=== PATIENT | female | born 1980 | race Caucasian/White ===

== ENCOUNTER 2017-11-25 15:39 | Emergency (ER) | payer OTHER, SELFPAY ==
[2017-11-25 15:44] VITALS: BP 119/90; PULSE 100; RESP 18; TEMP 37; O2SAT 99; BMI 18.1
--- NOTE | 2017-11-25 15:54 | CT_ITS ---
CT abdomen pelvis wo con CLINICAL INDICATION: Right-sided abdominal pain ITS.REASON: ABD PAIN ORDERING PHYSICIAN: Mallory Romeo MD PATIENT AGE: 37 years COMPARISON: None TECHNIQUE: Axial images obtained with sagittal and coronal reformats. PROCEDURE: Oral Contrast: None IV Contrast: None . FINDINGS: The lung bases are clear. There is subtle area of decreased attenuation involving the inferior medial aspect of the right hepatic lobe adjacent to the gallbladder fossa. This may limit related to partial volume averaging artifact however, a subtle space-occupying lesion cannot be excluded. Follow-up with contrast suggested on outpatient basis. The liver is otherwise unremarkable. Gallbladder is contracted without radio opaque stones. The spleen, adrenal glands, and pancreas are unremarkable. Faint calcific density in the right upper quadrant in the region of the duodenal bulb. Punctate 2 mm stone is present in the lower pole the right kidney. No hydronephrosis. Or obstructing ureteral calculi. Unremarkable appendix. No intestinal obstruction or free air. No focal inflammatory change. Prior hysterectomy. Small amount fluid is present in the cul-de-sac on the right IMPRESSION 1. No definite acute finding. 2. Possible small space-occupying lesion of the liver at 1.8 cm versus artifact. Outpatient three-phase CT scan suggested with contrast. 3. Contracted gallbladder. 4. nonobstructing punctate right renal calculus 5. No evidence of appendicitis or stranding ureteral calculus
[2017-11-25 16:27] LABS: Basophils % 0.6 % (0.1-2.0); Eosinophils # 0.1 K/mm3 (0.0-0.4); Hematocrit 40.7 % (37.0-47.0); Hemoglobin 13.3 g/dL (12.2-16.2); Lymphocytes # 2.4 K/mm3 (0.7-4.5); Mean Corpuscular HGB Conc 32.7 g/dL (31.8-35.4); Mean Corpuscular Hemoglobin 30.2 pg (27.0-31.2); Mean Corpuscular Volume 92.6 fl (81-99); Mean Platelet Volume 8.5 fl (7.4-10.4); Monocytes # 0.2 K/mm3 (0.1-1.0); Monocytes % 3.6 % (1.7-9.3); Neutrophils # 3.3 K/mm3 (1.8-7.8); Neutrophils % 54.9 % (37.0-80.0); Platelet Count 151 K/mm3 (142-424); Red Blood Count 4.39 M/mm3 (4.20-5.40); Red Cell Distribution Width 13.4 % (11.5-17.5)
[2017-11-25 16:36] LABS: Alanine Aminotransferase 19 U/L (12-78); Albumin Level 3.9 gm/dL (3.4-5.0); Albumin/Globulin Ratio 1.2 (1.1-1.8); Alkaline Phosphatase 72 U/L (46-116); Amylase 44 U/L (25-125); Anion Gap 9.9 mEq/L (5-15); Aspartate Amino Transferase 13 U/L (15-37); Bilirubin,Total 0.3 mg/dL (0.2-1.0); Blood Urea Nitrogen 9 mg/dL (7-18); Calcium 8.5 mg/dL (8.5-10.1); Carbon Dioxide 28 mmol/L (21.0-32.0); Chloride 103 mmol/L (98-107); Creatinine Clearance Estimated 81 mL/min (0-300); Creatinine,Serum 0.69 mg/dL (0.55-1.02); Estimated Glomerular Filt Rate > 60 ml/min (>60); GFR (African American) > 60 ML/MIN (>60); Globulin 3.3 gm/dl (1.3-3.2); Glucose 83 mg/dL (74-106); Lipase 157 u/L (73-393); Potassium 3.9 mmoL/L (3.5-5.1); Sodium 137 mmol/L (136-145); Total Protein,Serum 7.2 gm/dL (6.4-8.2)
--- NOTE | 2017-11-25 17:39 | HMH.EDABDPAI ---
ED Disposition Clinical Impression: Abdominal pain Qualifiers: Abdominal location: right lower quadrant Qualified Code(s): R10.31 - Right lower quadrant pain Disposition: Home, Self-Care Condition on Discharge: Good Instructions: DI for Acute Abdomen, Acute Abdominal Pain Additional Instructions: Clear liquids overnight, see Araceli Crawford next week for recheck, two to three days. Time of Disposition: 20:04 - Critical Care Critical Care Time: No Attestation: On 11/25/17, the high probability of a clinically significant, sudden or life threatening deterioration of the following system(s) required my full and direct attention, intervention and personal management. The time I documented below is in addition to time spent performing reported procedures but includes the following listed in this critical care notation. Medical Decision Making Vital Signs: 11/25/17 15:44 Temperature 98.6 F Temperature Source Oral Pulse Rate [Right Brachial] 100 H Respiratory Rate 18 Blood Pressure [Right Arm] 119/90 Blood Pressure Mean [Right Arm] 99 Blood Pressure Source [Right Arm] Automatic Cuff Blood Pressure Position [Right Arm] Sitting 02 Sat by Pulse Oximetry 99 Oxygen Delivery Method Room Air - Lab Data Lab results reviewed: Yes: I reviewed the patient's lab results. Lab Results 11/25/17 15:51: Urine Color Yellow, Urine Appearance Sl cloudy, Urine pH 6.5, Ur Specific [place] 1.020, Urine Protein Negative, Urine Glucose (UA) Negative, Urine Ketones Negative, Urine Blood Negative, Urine Nitrate Negative, Urine Bilirubin Negative, Urine Urobilinogen 0.2, Ur Leukocyte Esterase Negative, Urine WBC Occasional, Ur Squamous Epith Cells 10-20, Urine Bacteria Trace 11/25/17 16:18: WBC 6.0, RBC 4.39, Hgb 13.3, Hct 40.7, MCV 92.6, MCH 30.2, MCHC 32.7, RDW 13.4, Plt Count 151, MPV 8.5, Neut % (Auto) 54.9, Lymph % (Auto) 40.0, Rosebud % (Auto) 3.6, Eos % (Auto) 1.0, Baso % (Auto) 0.6, Neut # (Auto) 3.3, Lymph # (Auto) 2.4, Rosebud # (Auto) 0.2, Eos # (Auto) 0.1, Baso # (Auto) 0.0 11/25/17 16:18: Sodium 137, Potassium 3.9, Chloride 103, Carbon Dioxide 28, Anion Gap 9.9, BUN 9, Creatinine 0.69, Estimated Creat Clear 81, Estimated GFR > 60, Est GFR ( Amer) > 60, Glucose 83, Calcium 8.5, Total Bilirubin 0.3, AST 13 L, ALT 19, Alkaline Phosphatase 72, Total Protein 7.2, Albumin 3.9, Globulin 3.3 H, Albumin/Globulin Ratio 1.2, Amylase 44, Lipase 157 Result diagrams: 11/25/17 16:18 11/25/17 16:18 Orders (Tests/Meds): ED MEDICATIONS Generic Name Dose Route Start Last Admin Trade Name Freq PRN Reason Stop Dose Admin Sodium Chloride 10 ml 11/25/17 16:23 Saline Flush 10ml Syringe IV 12/25/17 16:22 NEEDED PRN Maintain IV Site - CT Data CT Scan: Abdomen, Pelvis Time Received: 17:[address] Reviewed: Yes: I have viewed the radiologist's interpretation Preliminary Findings: Normal/NAD - Solomon Inquiry Pt receiving controlled substance: No Medical Decision Making Narrative: Nonsurgical abdomen, will f/u Araceli Crawford, stable at d/c Abdominal Pain HPI - General Chief Complaint: Abdominal Pain Stated Complaint: Pain on Right Side Time Seen by Provider: 11/25/17 17:39 Mode of Arrival: Ambulatory Limitations: No Limitations Description of Symptoms (Recalled from ER Triage Doc. by RN): RIGHT SIDE ABD PAIN - History of Present Illness HPI narrative: Diminished appetite, RLQ abdominal pain x several days, referred by Araceli Crawford to r/o appendicitis after seen in Araceli's office today. No fever or vomiting today. No blood from above or below. Pain mild and nonradiating, no urinary sx, hx hysterectomy. MD complaint: abdominal pain - Related Data Allergies Allergy/AdvReac Type Severity Reaction Status Date / Time cephalexin [From Keflex] Allergy Mild TONGUE Unverified 11/08/17 15:14 FEEL THICK metronidazole [From Flagyl] Allergy Mild TREMORS Unverified 11/08/17 15:14 clonazepam [From KLONOPIN] All
[2017-11-25 17:55] LABS: Microscopic, Urine URINE MICROSCOPIC (MICROSCOPIC)
[2017-11-25 17:56] LABS: Appearance,Urine SL CLOUDY (Clear); Bilirubin,Urine Negative (Negative); Blood, Urine Negative (Negative); Color,Urine YELLOW (Yellow); Glucose,Urine (UA) Negative (Negative); Ketones,Urine Negative (Negative); Leukocyte Esterase,Urine Negative (Negative); Nitrate,Urine Negative (Negative); PH,Urine 6.5 (5.0-8.5); Protein,Urine Negative (Negative); Urobilinogen,Urine 0.2 EU/dl (0.2)
[2017-11-25 18:02] LABS: Bacteria,Urine Trace /lpf; WBC,Urine Occasional #/hpf (0-3)
[2017-11-25 20:37] VITALS: BP 100/69; PULSE 77; RESP 16; TEMP 37; O2SAT 99
== END 2017-11-25 20:41 | disposition home or self-care (01) ==
PROVIDERS: Emergency Provider Emergency Medicine; Family Provider Nurse Practitioner Family
DX: R10.31 Right lower quadrant pain (principal); F17.210 Nicotine dependence, cigarettes, uncomplicated
CPT/HCPCS: 74176; 80053; 81001; 82150; 83690; 85025; 99283

== ENCOUNTER → 2019-07-09 09:58 | Outpatient (POV) | payer OTHER, SELFPAY | PROVIDERS: PCP Nurse Practitioner Family; Visit Provider Nurse Practitioner Family | DX: Z00.00 Encounter for general adult medical examination without abnormal findings (principal) ==

== ENCOUNTER 2021-02-26 10:00 | Outpatient (RCR) | payer OTHER, SELFPAY | END 2021-03-16 14:00 | disposition home or self-care (01) | LOC: PT.CARL 10:00 | PROVIDERS: PCP Nurse Practitioner Family; Visit Provider Nurse Practitioner Family | DX: M54.2 Cervicalgia (principal) | CPT/HCPCS: 97110; 97140; 97163 ==

== ENCOUNTER → 2021-03-09 15:49 | Outpatient (CLI) | payer OTHER, SELFPAY ==
--- NOTE | 2021-03-09 15:52 | MR_ITS ---
PROCEDURE: MR CERVICAL SPINE WO CON CLINICAL INDICATION: CERVICAL DISC DISORDER Weakness in lt arm. When tilting head up, pain radiates down back. Lt arm numbness. Symptoms x2yrs. Headache. COMPARISON: No exams were available for comparison TECHNIQUE: Medially not necessary okay 3-D MIP and myelographic images are also rendered and reviewed FINDINGS: There is normal alignment. Craniocervical junction has an unremarkable appearance. C2-C3: Unremarkable. C3-C4: Unremarkable. C4-C5: Mild left-sided uncovertebral hypertrophy with mild left-sided foraminal narrowing. C5-C6: Mild degenerative disc disease. There is a small right paracentral and foraminal disc osteophyte complex causing right lateral recess and foraminal narrowing. There is mild flattening of the cord anteriorly on the right with canal stenosis of 9 mm. C6-C7: Unremarkable. C7-T1: Unremarkable. There are few scattered small cervical lymph nodes. There is a right thyroid nodule measuring 16 x 14 mm. This is heterogeneous increased T2 signal with some increase in T1 signal. IMPRESSION: 1. C4-C5: Mild left-sided uncovertebral hypertrophy with mild left-sided foraminal narrowing. 2. C5-C6: Mild degenerative disc disease. There is a small right paracentral and foraminal disc osteophyte complex causing right lateral recess and foraminal narrowing. There is mild flattening of the cord anteriorly on the right with canal stenosis of 9 mm. 3. Indeterminate right thyroid nodule. Ultrasound suggested for further evaluation. Dictated by: Gabe Hopper MD 03/11/2021 10:59 Gabe Hopper MD in [place] 03/11/2021 10:59
== END ==
PROVIDERS: PCP Nurse Practitioner Family; Visit Provider Nurse Practitioner Family
DX: M50.13 Cervical disc disorder with radiculopathy, cervicothoracic region (principal)
CPT/HCPCS: 72141; 76376

== ENCOUNTER → 2021-03-17 14:32 | Outpatient (CLI) | payer OTHER, SELFPAY ==
--- NOTE | 2021-03-17 14:34 | US_ITS ---
PROCEDURE: US THYROID CLINICAL INDICATION: NEOPLASM OF UNCERTAIN BEHAVIOR OF THYROID GLAND COMPARISON: MR MR CERVICAL SPINE WO CON from 03/09/2021 FINDINGS: The right lobe is 4.5 x 1.3 x 1.6 cm. In the upper pole there is a 2 mm area of hypoechogenicity nonspecific. In the mid polar region there is a spongiform appearing nodule at 5 x 4 mm TR 2 benign-appearing. In the lower pole on the right there is a 1.9 x 1 cm partially cystic nodule which may correspond to the abnormality noted on the recent MRI. This is well-circumscribed wider than tall without calcification. TR level 2. The left lobe is 3.9 x 0.9 x 1.3 cm. There is a 2 mm cystic area in the lower pole IMPRESSION: Partially cystic 1.9 cm nodule in the lower pole on the right TR level 2. Consider 6-12 month follow-up to confirm short term stability. Dictated by: Gabe Hopper MD 03/17/2021 16:59 Gabe Hopper MD in [place] 03/17/2021 16:59
== END ==
PROVIDERS: PCP Nurse Practitioner Family; Visit Provider Nurse Practitioner Family
DX: D44.0 Neoplasm of uncertain behavior of thyroid gland (principal)
CPT/HCPCS: 76536

== ENCOUNTER → 2021-11-19 13:44 | Outpatient (CLI) | payer OTHER, SELFPAY ==
--- NOTE | 2021-11-19 13:46 | US_ITS ---
PROCEDURE: US THYROID CLINICAL INDICATION: SINGLE THYROID NODULE COMPARISON: US US THYROID from 03/17/2021 FINDINGS: Right lobe: 4.5 x 1.3 x 2.1 cm. Multiple stable nodules. The largest nodule is in the lower pole posteriorly at 1.5 x 2 x 0.8 cm. This is a mixed cystic and solid nodule and does not appear significantly changed. Left lobe: 3.8 x 1 x 1.3 cm. Two small cysts are present at 2 mm each. Isthmus: Unremarkable Additional findings: IMPRESSION: Stable ultrasound appearance of the thyroid gland with no change in the dominant right-sided nodule TR level 2 less than 2.5 cm. Annual follow-up suggested. Dictated by: Gabe Hopper MD 11/19/2021 15:28 Gabe Hopper MD in [place] 11/19/2021 15:28
== END ==
PROVIDERS: PCP Nurse Practitioner Family; Visit Provider Nurse Practitioner Family
DX: E04.1 Nontoxic single thyroid nodule (principal)
CPT/HCPCS: 76536

== ENCOUNTER 2022-05-21 12:52 | Emergency (ER) | payer OTHER, SELFPAY ==
[2022-05-21 13:19] VITALS: BP 112/82; PULSE 79; RESP 16; TEMP 36.8; O2SAT 99; BMI 19.2
--- NOTE | 2022-05-21 13:23 | HMH.EDUTC ---
[facility] [place] Clinical Impression: Left leg cellulitis, Need for Tdap vaccination Leg wound, left Qualifiers: Encounter type: initial encounter Qualified Code(s): S81.802A - Unspecified open wound, left lower leg, initial encounter Disposition: Home, Self-Care Condition on Discharge: Good Instructions: Cellulitis, Tetanus, Diphtheria, Pertussis (Tdap) Vaccine Additional Instructions: Keep the affected area clean and dry. Follow up with your regular doctor. Watch the wound for signs of worsening infection, such as worsening swelling, redness or drainage. Take the antibiotics as directed and apply the topical antibiotics as directed. Apply warm wet compresses to the affected area three or four times per day. GO TO THE ER FOR ANY WORSENING SYMPTOMS Prescriptions: Amoxicillin [Amoxicillin 500mg Tab] 500 mg PO TID 10 Days #30 tab Transmission Status: Received by [facility] Sulfamethoxazole/Trimethoprim [Bactrim DS tablet] 1 each PO BID 10 Days #20 tab Transmission Status: Received by [facility] Mupirocin [Bactroban 2% Ointment 22gm tube] 1 applicatio TP TID 7 Days #1 gm Transmission Status: Received by [facility] Referrals: Lillie Ivory [Primary Care Provider] - Forms: Work/School Release Time of Disposition: 13:41 Medical Decision Making - Medical Records Medical records reviewed: No: I reviewed the patient's medical records. - Solomon Inquiry Pt receiving controlled substance: No Vital Signs: 05/21/22 13:19 05/21/22 14:02 Temperature 98.3 F 98.3 F Temperature Source Oral Pulse Rate 79 Pulse Rate [Left] 79 Respiratory Rate 16 16 Blood Pressure 112/82 Blood Pressure [Right Arm] 112/82 Blood Pressure Mean [Right Arm] 92 02 Sat by Pulse Oximetry 99 Orders (Tests/Meds): ED MEDICATIONS Discontinued Medications Generic Name Dose Route Start Last Admin Trade Name Freq PRN Reason Stop Dose Admin Tetanus/Reduced Diphtheria/Acell Pertussis 0.5 ml 05/21/22 13:33 05/21/22 13:48 Tet/Diphth/Pert-Adult 0.5ml Syringe IM 05/21/22 13:34 0.5 ml .ONCE ONE Administration [facility] [place] - General Stated complaint: AO 05/18 leg injury Time Seen by Provider: 05/21/22 13:24 Description of Symptoms (Recalled from Triage Doc. by RN): patient comes in to get leg checked out. patient was mowing and soething come up and hit her leg. the spot is now getting red and swollen. happened 2 days ago HEENT Symptoms (Recalled from RN notes): No Resp Symptoms (Recalled from RN notes): No Skin Symptoms (Recalled from RN notes): Yes MS Symptoms (Recalled from RN notes): No Functional Status (Recalled from RN notes): wnl - History of Present Illness Provider Complaint: 2 days ago she was mowing her grass when the accountant assistant hit a piece of pvc pipe and it came up and hit her on the left bergman. She recieved a small laceration. She thought it would be ok, so she did not seek treatment then. But, since then it has became swollen and there is an area of redness around it. Her tetanus immunization is not up to date. She denies any fever, chills, or feeling bad other than the pain at the site. She denies that there could be any foreign body in the wound. - Related Data Home Medications Medication Instructions Recorded Confirmed Cyanocobalamin (Vitamin B-12) 1,000 mcg PO DAILY 05/10/19 05/10/19 [Vitamin B-12] Ergocalciferol (Vitamin D2) 400 unit PO DAILY 05/10/19 05/10/19 [Vitamin D] Previous Rx's Medication Instructions Recorded Amoxicillin [Amoxicillin 500mg Tab] 500 mg PO TID 10 Days #30 tab 05/21/22 Mupirocin [Bactroban 2% Ointment 1 applicatio TP TID 7 Days #1 gm 05/21/22 22gm tube] Sulfamethoxazole/Trimethoprim 1 each PO BID 10 Days #20 tab 05/21/22 [Bactrim DS tablet] Allergies Allergy/AdvReac Type Severity Reaction Status Date / Time cephalexin [From Keflex] Allergy Mild TONGUE Verified 05/21/22 13:21 FEEL THICK metronid
[2022-05-21 14:02] VITALS: BP 112/82; PULSE 79; RESP 16; TEMP 36.8
== END 2022-05-21 14:02 | disposition home or self-care (01) ==
PROVIDERS: Emergency Provider Nurse Practitioner Family; PCP Nurse Practitioner Family
DX: L03.116 Cellulitis of left lower limb (principal); S81.812A Laceration without foreign body, left lower leg, initial encounter; W20.8XXA Other cause of strike by thrown, projected or falling object, initial encounter
CPT/HCPCS: 90471; 90715; 99212; G0463

== ENCOUNTER 2022-11-06 14:16 | Emergency (ER) | payer OTHER, SELFPAY ==
[2022-11-06 16:33] LABS: UTC Influenza A Antigen Negative (Negative)
[2022-11-06 16:34] LABS: UTC Influenza B Antigen Negative (Negative)
[2022-11-06 16:37] VITALS: BP 99/78; PULSE 110; RESP 16; TEMP 37.1; O2SAT 99; BMI 19.2
--- NOTE | 2022-11-06 17:12 | EXP.UTC ---
Discharge Plan Disposition Patient Disposition: Home, Self-Care Condition: Good Prescriptions Prescriptions: No Action ergocalciferol (vitamin D2) 400 UNIT tablet 400 unit PO DAILY cyanocobalamin (vitamin B-12) 1,000 MCG capsule 1,000 mcg PO DAILY sulfamethoxazole-trimethoprim 1 EACH tablet 1 each PO BID 10 Days Qty: 20 0RF amoxicillin 500 MG tablet 500 mg PO TID 10 Days Qty: 30 0RF mupirocin 22 GM ointment 1 applicatio TP TID 7 Days Qty: 1 0RF Referrals Follow up/Referrals: Lillie Ivory [Primary Care Provider] - See instructions Activity Restrictions/Add. Instructions Additional Instructions/Restrictions: may return to work once Covid results are known. Clinical Impressions Clinical Impression: Upper respiratory tract infection Stand Alone Forms Stand Alone Forms: Work/School Release Discharge ED Provider: Cherelle Castro [facility] General Stated complaint: Runny Nose, Bodyaches Mode of Arrival: Ambulatory Source of Information: Patient Limitations: No Limitations Time Seen by Provider: 11/06/22 17:12 Description of Symptoms (Recalled from Triage Doc. by RN): pt comes in with c/o body aches, headache, chills, symptoms began yesterday HEENT Symptoms (Recalled from RN notes): Yes Resp Symptoms (Recalled from RN notes): Yes Skin Symptoms (Recalled from RN notes): No MS Symptoms (Recalled from RN notes): No Functional Status (Recalled from RN notes): n/a History of Present Illness Provider Complaint: Pt relates that her son had flu last week. 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 She is concerned as she ran a fever at home and has had a sore throat, sinus drainage, headache, and body aches. She has not taken anything for her symptoms. Related Data Home Medications Medication Instructions Recorded Confirmed cyanocobalamin (vitamin B-12) 1,000 mcg PO DAILY Supplement 05/10/19 05/10/19 1,000 mcg capsule ergocalciferol (vitamin D2) 10 mcg 400 unit PO DAILY Supplement 05/10/19 05/10/19 (400 unit) tablet Previous Rx's Medication Instructions Recorded amoxicillin 500 mg tablet 500 mg PO TID 10 days #30 tabs 05/21/22 mupirocin 2 % topical ointment 1 applicatio topical TID 7 days ##1 05/21/22 sulfamethoxazole 800 1 each PO BID 10 days #20 tabs 05/21/22 mg-trimethoprim 160 mg tablet Allergies Allergy/AdvReac Type Severity Reaction Status Date / Time cephalexin [From Keflex] Allergy Mild TONGUE Verified 11/06/22 16:42 FEEL THICK metronidazole [From Flagyl] Allergy Mild TREMORS Verified 11/06/22 16:42 clonazepam [From KLONOPIN] Allergy Unknown UNK Verified 11/06/22 16:42 paroxetine [From PAXIL] Allergy Unknown eyes Verified 11/06/22 16:42 shaky Worker's Comp Is this a Worker's Comp case?: No [facility] Disclaimer: The information contained in this section may have been updated after the patient was seen, as this information can be updated by other users. Social History Smoking Status: Current every day smoker tobacco type: cigarettes packs per day: 15 second hand exposure: No alcohol intake: never current occupational status: other Travel in the last 8 weeks: None caffeine: No ROS Obtained: Yes All systems reviewed & no additional complaints except as documented Constitutional Constitutional: Reports body ache, Reports chills, Reports fatigue, Reports fever(s), Reports headache(s) and Reports malaise Eyes Eyes: Reports system reviewed and no additional complaints, except as documented ENT Ears, Nose, Mouth, and Throat: Reports headache(s), Reports nasal discharge and Reports sore throat Cardiovascular Cardiovascular: Reports system reviewed and no additional complaints, except as documented Respiratory Respiratory: Reports system reviewed and no additional complaints, except as documented Gastrointestinal Gastrointestingal: Reports system reviewed and
[2022-11-06 17:23] VITALS: BP 99/78; PULSE 90; RESP 16; TEMP 37.1
== END 2022-11-06 17:28 | disposition home or self-care (01) ==
PROVIDERS: Emergency Provider Nurse Practitioner Family; PCP Nurse Practitioner Family
DX: U07.1 COVID-19 (principal)
CPT/HCPCS: 87804; 99212; C9803; G0463; U0003; U0005

== ENCOUNTER 2024-03-08 10:42 | Outpatient (CLI) | payer OTHER, SELFPAY ==
--- NOTE | 2024-03-08 10:47 | MM_ITS ---
PROCEDURE INFORMATION: Exam: Bilateral Screening 3D Mammography Exam date and time: 03/08/2024 10:47 AM Age: 43 years old Clinical indication: Screening mammogram TECHNIQUE: Imaging protocol: Bilateral Screening tomosynthesis and 2D mammography including computer-aided detection (CAD) when performed. COMPARISON: No relevant prior studies available. FINDINGS: MAMMOGRAPHY: Breast composition: The breast is heterogeneously dense, which may obscure small masses. Mass: 1 cm mass within the upper outer right middle 1/3 should be further assessed with spot views in CC/MLO projection. Ultrasound may also be required. Architectural distortion: No new or suspicious architectural distortion. Calcifications: Calcifications within the slightly upper central posterior right breast should be assessed with spot MAGNIFICATION views in CC/ML projection for morphologic characterization. Asymmetric density: No new or suspicious asymmetric density is present Skin thickening: None. Axillary adenopathy: None. IMPRESSION: 1. 1 cm mass within the upper outer right middle 1/3 should be further assessed with spot views in CC/MLO projection. Ultrasound may also be required. 2. Calcifications within the slightly upper central posterior right breast should be assessed with spot MAGNIFICATION views in CC/ML projection for morphologic characterization. ASSESSMENT: BI-RADS category 0: Incomplete-need additional imaging evaluation
== END 2024-03-08 23:59 ==
LOC: RAD 10:43
PROVIDERS: PCP Nurse Practitioner Family; Visit Provider Nurse Practitioner Family
DX: Z12.31 Encounter for screening mammogram for malignant neoplasm of breast (principal)
CPT/HCPCS: 77063; 77067

== ENCOUNTER 2024-03-16 12:46 | Outpatient (CLI) | payer OTHER, SELFPAY ==
--- NOTE | 2024-03-16 12:49 | MM_ITS ---
PROCEDURE INFORMATION: Exam: US Right Breast, Complete MG Right Diagnostic Breast Tomosynthesis Exam date and time: 03/16/2024 12:53 PM Age: 43 years old Clinical indication: Patient recalled on the basis of a screening mammogram for further evaluation; Right breast; mass and calcifications TECHNIQUE: Imaging protocol: Complete ultrasound of all four quadrants of the right breast and the retroareolar regions, including ultrasound of the axilla when performed. Right Diagnostic tomosynthesis and 2D mammography including computer-aided detection (CAD) when performed. Unilateral or bilateral exam. COMPARISON: MG MM DIG SCREENING MAMM BI W/CAD 03/08/2024 10:47 AM FINDINGS: MAMMOGRAPHY: Breast composition: The breast is heterogeneouly dense, which may obscure small masses (based on the most recent screening mammogram report). Breast mammogram findings: Digital diagnostic magnification views of the posterior right breast do not demonstrate any suspicious clustered calcifications. Digital diagnostic spot compression views of the right upper outer quadrant demonstrate a persistent 1.0 cm ovoid mass posteriorly ULTRASOUND: Breast ultrasound findings: Sonographic images of the right breast including the retroareolar region, all 4 quadrants and the axilla demonstrates a mixed solid and cystic mass in the 11 o'clock axis 7 cm from the nipple most closely corresponding to the mass on mammography. It measures 1.3 x 1.3 x 0.6 cm in dimension. The finding is radiographically indeterminate. Few scattered subcentimeter cysts are noted throughout the right breast. Cursors were placed over normal fibroglandular structures in the right 9 o'clock axis 5 cm from the nipple. Cursors were placed over normal fibroglandular structures in the right 11 o'clock axis 10 cm from the nipple. Cursors replaced over normal fat in the right axilla.. No architectural distortion or acoustical shadowing. No skin thickening or axillary adenopathy. IMPRESSION: Mass on screening mammography in the right upper outer quadrant corresponds to an indeterminate mass on sonography. Ultrasound-guided core biopsy is recommended for further evaluation ASSESSMENT: BI-RADS Category 4: Suspicious.
== END 2024-03-16 23:59 | disposition home or self-care (01) ==
LOC: RAD 12:47
PROVIDERS: PCP Nurse Practitioner Family; Visit Provider Nurse Practitioner Family
DX: R92.2 Inconclusive mammogram (principal)
CPT/HCPCS: 76641; 77061; 77065; G0279

== ENCOUNTER 2024-03-28 07:37 | Outpatient (CLI) | payer OTHER, SELFPAY ==
--- NOTE | 2024-03-28 07:41 | US_ITS ---
FINAL REPORT CLINICAL HISTORY: RT BREAST NODULE 1100-- fna rt side dr casarez FINDINGS: ULTRASOUND-GUIDED ASPIRATION RIGHT BREAST HISTORY: Abnormal ultrasound. Right breast nodule. TECHNIQUE: Hypoechoic lesion was localized within the right breast at 11:00 measuring 13 x 13 x 6 mm with internal echoes. Right breast was prepped in routine sterile fashion and locally anesthetized with 1% lidocaine. An 18-gauge needle was directed toward the lesion. Aspiration occurred which yielded less than 1 mL of dark fluid sent for cytology. No malignant cells were seen on cytology report associated with the submitted specimen. No biopsy marker clip was placed. Lesion is considered benign. IMPRESSION: 1. Right breast lesion considered to represent a benign complex cyst 2. Recommend 6-month mammographic and ultrasound follow-up as routine post benign biopsy surveillance Authenticated and ERN
== END 2024-03-28 23:59 | disposition home or self-care (01) ==
LOC: RAD 07:38
PROVIDERS: PCP Nurse Practitioner Family; Visit Provider Nurse Practitioner Family
DX: N63.11 Unspecified lump in the right breast, upper outer quadrant (principal)
CPT/HCPCS: 19083

== ENCOUNTER 2025-06-03 13:57 | Outpatient (CLI) | payer OTHER, SELFPAY ==
--- NOTE | 2025-06-03 14:00 | MM_ITS ---
PROCEDURE INFORMATION: Exam: MG Bilateral Screening 3D Mammography Exam date and time: 06/03/2025 2:10 PM Age: 44 years old Clinical indication: Screening mammogram TECHNIQUE: Imaging protocol: Bilateral Screening tomosynthesis and 2D mammography including computer-aided detection (CAD) when performed. COMPARISON: 1. MG MM DIG MAMM DX UNILAT RT CAD 03/16/2024 12:53 PM 2. MG MM DIG SCREENING MAMM BI W/CAD 03/08/2024 10:47 AM 3. US BIOPSY BREAST RT 03/28/2024 7:59 AM 4. US BREAST RT COMPLETE 03/16/2024 1:48 PM FINDINGS: MAMMOGRAPHY: Breast composition: The breast is heterogeneously dense, which may obscure small masses. Mass: None. Architectural distortion: No new or suspicious architectural distortion. Calcifications: No new or suspicious calcifications are present Asymmetric density: No new or suspicious asymmetric density is present Skin thickening: None. Axillary adenopathy: None. IMPRESSION: No mammographic evidence of malignancy. Recommend annual screening mammography unless otherwise clinically indicated. ASSESSMENT: BI-RADS category 1: Negative.
--- OUTSIDE RECORDS SUMMARY | 2025-06-03 14:05 | XMS_ITS | Encounter Summary ---
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 Name: DAISY MORRIS/Sex: 1980 Female Med Rec #: [id number] Physician: EKTA FARMER MD-ORT Financial #: [id number] Pt. Type: O Room/Bed: Admit/Disch: 12/01/21 06:59:00 - Institution: [facility] Main OR PostOp Case Times Entry 1 In PACU II 12/01/21 11:50:00 Ready for PACU II 12/01/21 12:40:00 Discharge Discharge from PACU 12/01/21 12:40:00 II Last Modified By: Charli Long Rn-Resource 12/01/21 13:01:17 Finalized By: Charli Long Rn-Resource Document Signatures Signed By: Charli Long Rn-Resource 12/01/21 13:03 documented in this encounter Plan of Treatment Not on file documented as of this encounter Visit Diagnoses Not on filedocumented in this encounter
--- OUTSIDE RECORDS SUMMARY | 2025-06-03 14:05 | XMS_ITS | Referral Summary ---
Author Organization [employer] ([place], [place], [place], [place]) Address [address] [place] [address] Care Team Providers Care Institutional Cook Name Role Phone Unavailable Primary Care Provider Unavailabl e Social History Tobacco Use Types Packs/Day Years Used Date Smoking Tobacco: Never Assessed Comments Unknown Sex and Gender Information Value Date Recorded Sex Assigned at Female 05/18/2022 8:55 PM CDT Legal Sex Female 8:55 PM CDT Gender Identity Female 05/18/2022 8:55 PM CDT Sexual Orientation Not on file Plan of Treatment Not on file
--- OUTSIDE RECORDS SUMMARY | 2025-06-03 14:05 | XMS_ITS | Encounter Summary ---
Author Organization [employer] ([place], [place], [place], [place]) Address [address] [place] [address] Care Team Providers Care Wholesale Loan Processor Name Role Phone Unavailable Primary Care Provider Unavailabl e Encounter Details Date Type Department Care Team (Late st Contact Info) Description 12/01/2021 Transcribed Document [facility] [place] [facility] [place] [address] ProviderWinsome MD [address], [place] [id number] Social History Tobacco Use Types Packs/Day Years Used Date Smoking Tobacco: Never Assessed Comments Unknown Sex and Gender Information Value Date Recorded Sex Assigned at Female 05/18/2022 8:55 PM CDT Legal Sex Female 8:55 PM CDT Gender Identity Female 05/18/2022 8:55 PM CDT Sexual Orientation Not on file documented as of this encounter Miscellaneous Notes * Cerner Conversion Note - Historical ProviderMD - 12/01/2021 2:00 AM KNITTER MACHINE Spiritual Care Assessment Entered On: 12/01/2021 7:49 EST Performed On: 12/01/2021 7:22 EST by MIR BARKER General Information Initial Visit : Yes Referred by : Patient Referral Reason Comment : Pre-surgery visit Ministry Provided to : Patient, Family/Significant other MIR BARKER P - 12/01/2021 7:48 EST Spiritual Assessment Spiritual Assessment Comment/Summary Points : Provided pre-surgery visit and prayer with patient and S.O. Spirital Assessment Comment/Summary Report : SPIRITUAL ASSESSMENT COMMENT/SUMMARY No qualifying data available. MIR BARKER - 12/01/2021 7:48 EST Interventions Emotional Support : Empathic/Engaged listening, Family/Significant other supported Spiritual and Quaker : Prayer shared, Spiritual/Quaker support provided MIR BARKER P - 12/01/2021 7:48 EST Electronically signed by [facility], [facility] Conversion Knitting Machine Tender Cerner at 03/09/2023 1:46 PM CDT documented in this encounter Plan of Treatment Not on file documented as of this encounter Visit Diagnoses Not on filedocumented in this encounter
--- OUTSIDE RECORDS SUMMARY | 2025-06-03 14:05 | XMS_ITS | Encounter Summary ---
Author Organization [employer] ([place], [place], [place], [place]) Address [address] [place] [address] Care Team Providers Care Animal Cruelty Investigator Name Role Phone Unavailable Primary Care Provider Unavailabl e Encounter Details Date Type Department Care Team (Late st Contact Info) Description 12/01/2021 Transcribed Document [facility] [place] Family Medicine [address] [place] [address] ProviderWinsome MD [address] [place] [address] Social History Tobacco Use Types [...] - Winsome ProviderMD - 12/01/2021 10:05 AM FIBERGLASS ROLLER [facility] Main OR Preop Summary Primary Physician: EKTA FARMER MD-ORT Finalized Date/Time: 12/01/21 12:13:07 Pt. Name: DAISY MORRIS/Sex: 1980 Female Med Rec #: [id number] Physician: EKTA FARMER MD-ORT Financial #: [id number] Pt. Type: O Room/Bed: Admit/Disch: 12/01/21 06:59:00 - Institution: [facility] PreOp Case Times Entry 1 In Preop 12/01/21 07:17:00 Ready for Holding n/a Room Patient Ready for 12/01/21 08:37:00 Surgery Patient Out of Preop 12/01/21 09:11:00 Patient Out of n/a Holding Room Last Modified By: BUFFY HANSEN RN 12/01/21 12:13:06 [facility] PreOp Case Times Audit 12/01/21 12:13:06 [employer] Prescription Clerk: MANIYVETTEPOONAM Modifier: BUFFYANTONIAARIS <+> 1 Patient Out of Preop Finalized By: BUFFY HANSEN RN Document Signatures Signed By: BUFFY HANSEN RN 12/01/21 12:13 Electronically signed by [facility] Conversion Cattle Inspector Cerner at 03/09/2023 1:46 PM CDT documented in this encounter Plan of Treatment Not on file documented as of this encounter Visit Diagnoses Not on filedocumented in this encounter
--- OUTSIDE RECORDS SUMMARY | 2025-06-03 14:05 | XMS_ITS | Encounter Summary ---
Author Organization [employer] ([place], [place], [place], [place]) Address [address] [place] [address] Care Team Providers Care Chore Worker Name Role Phone Unavailable Primary Care Provider Unavailabl e Encounter Details Date Type Department Care Team (Late st Contact Info) Description 12/01/2021 Transcribed Document [facility] Radiology [address] [place] [address] Wilver Rowe MD [address]nd [place] [address] Social History Tobacco Use Types Packs/Day Years Used Date Smoking Tobacco: Never Assessed Comments Unknown Sex and Gender Information Value Date Recorded Sex Assigned at Female 05/18/2022 8:55 PM CDT Legal Sex Female 8:55 PM CDT Gender Identity Female 05/18/2022 8:55 PM CDT Sexual Orientation Not on file documented as of this encounter Miscellaneous Notes * Cerner Conversion Note - Wilver Rowe MD - 12/01/2021 8:20 AM EST Patient: DAISY MORRIS Age: 41 years Sex: Female : 1980 Associated Diagnoses: None Author: COMER, MORTEZA Inman APRN Chief Complaint pleasant 41 yo female here for C5-6 ACD&F [address] Dr. Rowe. pt has had neck and emilie UE pain for 2 years, gotten worse, failed conservative measures. Review of Systems Constitutional: Negative. Eye: Negative. Ear/Nose/Mouth/Throat: Negative. Respiratory: Negative. Cardiovascular: Negative. Gastrointestinal: Negative. Genitourinary: Negative. Hematology/Lymphatics: Negative. Endocrine: Negative. Immunologic: Negative. Musculoskeletal: Neck pain, emilie UE pain/weakness. Integumentary: Negative. Neurologic: Negative. Psychiatric: Negative. All other systems are negative Health Status Allergies: Allergic Reactions (Selected) Severity Not Documented Keflex- Tongue swelling. KlonoPIN- Jittery feeling. Paxil- Nystagmus., Allergies (3) Active Reaction Keflex Tongue swelling KlonoPIN Jittery feeling Paxil Nystagmus Current medications: (Selected) Inpatient Medications Ordered Cleocin HCl: 900 mg, 50 mL, 100 mL/Hr, IV Piggyback, PREOP HYDROmorphone: 0.25 mg, IV Push, Q10Min, PRN: Pain (Moderate 4-6) HYDROmorphone: 0.5 mg, IV Push, Q10Min, PRN: Pain (Severe 7-10) Lactated Ringers Injection intravenous solution 1,000 mL: 20 mL/Hr, IntraVENous acetaminophen-HYDROcodone 325 mg-5 mg oral tablet: 1 Tab, Oral, 1-Time, PRN: Pain (Moderate 4-6) acetaminophen: 650 mg, Oral, 1-Time, PRN: Pain (Mild 1-3) famotidine: 20 mg, Oral, 1-Time fentaNYL: 25 mcg, IV Push, 1-Time, PRN: Pain (Severe 7-10) fentaNYL: 25 mcg, IV Push, Q10Min, PRN: Pain (Moderate 4-6) fentaNYL: 25 mcg, IV Push, Q10Min, PRN: Pain (Severe 7-10) hydrALAZINE: 2.5 mg, IV Push, Q10Min, PRN: Hypertension lidocaine 1% preservative-free injectable solution: 0.5 mL, IntraDermal, 1-Time magnesium sulfate: 2 Gram, 50 mL, 25 mL/Hr, IV Piggyback, 1-Time, PRN: Pain (Severe 7-10) ondansetron: 4 mg, IV Push, 1-Time, PRN: Nausea/Vomiting ondansetron: 4 mg, IV Push, 1-Time, PRN: Nausea/Vomiting oxyCODONE: 5 mg, Oral, 1-Time, PRN: Pain (Moderate 4-6) oxyCODONE: 5 mg, Oral, 1-Time, PRN: Pain (Moderate 4-6) Documented Medications Documented Flonase: 1 Jean, Nostrils Both, Daily, PRN: for nasal congestion, 0 Refill(s) Vitamin D3: 50,000 Units, Oral, Weekly, usually on Mondays, 0 Refill(s), Home Medications (2) Active Flonase 1 Jean, PRN, Nostrils Both, Daily Vitamin D3 50,000 Units, Oral, Weekly , Medications (17) Active Scheduled: (3) clindamycin/D5w 900 mg 50 mL, IV Piggyback, PREOP famotidine 20 mg tab 20 mg 1 Tab, Oral, 1-Time lidocaine 1% *PF* inj 2 mL 0.5 mL, IntraDermal, 1-Time Continuous: (1) lactated ringers 1,000 mL 1,000 mL, IntraVENous, 20 mL/Hr PRN: (13) acetaminophen 325 mg tab 650 mg 2 Tab, Oral, 1-Time acetaminophen/HYDROcodone 325/5 mg tab 1 Tab, Oral, 1-Time fentaNYL 100 mcg/2 mL inj 25 mcg 0.5 mL, IV Push, Q10Min fentaNYL 100 mcg/2 mL inj 25 mcg 0.5 mL, IV Push, 1-Time fentaNYL 100 mcg/2 mL inj 25 mcg 0.5 mL, IV Push, Q10Min hydrALAZINE 20 mg/1 mL inj 2.5 mg 0.13 mL, IV Push, Q10Min HYDROmorphone 1 mg/1 mL inj 0.25 mg 0.25 mL, IV Push, Q10Min HYDROmorphone 1 mg/1 mL inj 0.5 mg 0.5 mL, IV Push, Q10Min magnesium sulfate 2 Gram 50 mL, IV Piggyback, 1-Time ondansetron 4 mg/2 mL inj 4 mg 2 mL, IV Push, 1-Time ondansetron 4 mg/2 mL inj 4 mg 2 mL, IV Push, 1-Time oxyCODONE 5 mg tab 5 mg 1 Tab, Oral, 1-Time oxyCODONE 5 mg tab 5 mg 1 Tab, Oral, 1-Time Problem list: All Problems Smoker / SNOMED CT 302385018 / Confirmed Seasonal allergies / sinusitis / SNOMED CT 1615856832 / Confirmed Neck pain; BUE weak; pain w/ looking up / SNOMED CT 779942551 / Confirmed GERD (gastroesophageal reflux disease) / SNOMED CT 451866225 / Confirmed COVID-19 / SNOMED CT 8699404394 / Confirmed Back pain / SNOMED CT 203874720 / Confirmed At risk for sleep apnea / IMO [id number] / Confirmed Anxiety/ hx of panic attacks / SNOMED CT 46573298 / Confirmed, Active Problems (8) Anxiety/ hx of panic attacks At risk for sleep apnea Back pain COVID-19 GERD (gastroesophageal reflux disease) Neck pain; BUE weak; pain w/ looking up Seasonal allergies / sinusitis Smoker Histories Past Medical History: No active or resolved past medical history items have been selected or recorded. Family History: No family history items have been selected or recorded. Procedure history: partial hysterectomy 2014. EGD for GERD and ulcers. Social History Social & Psychosocial Habits Alcohol 11/26/2021 Alcohol Use History, Social Habits No Substance Abuse 11/26/2021 Recreational Drug Use History No Recreational Drug Use Last 12 Months No Tobacco 11/26/2021 Smoking Status 10 or more cigarettes (1/ Smokeless Tobacco Status Never Years of Tobacco Use 23 Packs/Tins Daily 1 Month Tobacco Last Used Nov 2021 . Physical Examination VS/Measurements Vital Signs/Vital Measures 12/01/2021 8:00 EST Systolic Blood Pressure 103 mmHg Diastolic Blood Pressure 62 mmHg Temperature Source Temporal artery scanning Temperature Mode Fahrenheit Temperature, Fahrenheit 97.2 Deg F Heart Rate Monitored 73 bpm Respiratory Rate 16 Breaths/Min Oxygen Saturation 100 % Oxygen Therapy Mode Room air , Vitals Signs (last 24 hrs) Last Charted Minimum Maximum Temp 97.2 (DEC 01 08:00) 97.2 (DEC 01 08:00) 97.2 (DEC 01:00) Mon HR 73 (DEC 01 08:00) 73 (DEC 01 08:00) 73 (DEC 01 08:00) Resp Rate 16 (DEC 01 08:00) 16 (DEC 01 08:00) 16 (DEC 01:00) SBP 103 (DEC 01 08:00) 103 (DEC 01 08:00) 103 (DEC 01 08:00) DBP 62 (DEC 01 08:00) 62 (DEC 01 08:00) 62 (DEC 01 08:00) SpO2 100 (DEC 01 08:00) 100 (DEC 01 08:00) 100 (DEC 01 08:00) General: Alert and oriented, No acute distress. Eye: Extraocular movements are intact. HENT: Normocephalic, Normal hearing. Respiratory: Lungs are clear to auscultation, Respirations are non-labored. Cardiovascular: Normal rate, Regular rhythm, No murmur, No gallop, No edema. Musculoskeletal: painful ROM neck, emilie UE weakness/paresthesia. Integumentary: Warm, Dry, [place]. Neurologic: Alert, Oriented. Psychiatric: Cooperative, Appropriate mood & affect. Review / Management Results review: No qualifying data available, Lab results: 12/01/2021 7:37 EST SARS-CoV-2 (COVID19 PCR) Negative . Impression and Plan Diagnosis 1. neck pain, emilie UE paresthesia/weakness 2. smoker 3. MIKE risk 4. back pain 5. GERD 6. anxiety. Condition: Stable. pt to proceed with surgery, DC home today documented in this encounter Plan of Treatment Not on file documented as of this encounter Visit Diagnoses Not on filedocumented in this encounter
--- OUTSIDE RECORDS SUMMARY | 2025-06-03 14:05 | XMS_ITS | Encounter Summary ---
Author Organization [employer] ([place], [place], [place], [place]) Address [address] [place] [address] Care Team Providers Care Fiber Optic Technician Name Role Phone Unavailable Primary Care Provider Unavailabl e Encounter Details Date Type Department Care Team (Late st Contact Info) Description 12/01/[address] 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 Lifting Restrictions: No heavy lifting Driving after Discharge: no driving for 24 hours or while taking narcotics Showering/Bathing: may shower in 48 hours, do not submerge in bathtub, hot tub, or swimming pool Notify Provider of: Fever or chills, excessive bleeding, pain uncontrolled by medication, swelling, pus-like drainage Wound/Incision Care after Discharge: Nay remove dressing in 48 hours. Keep steri strips on, clean and dry. Collar is for comfort only. Go to Emergency Room for severe swelling, stridor (wheezy/restricted breathing), or shortness of breath. See separate sheet for additional post operative instructions. Take pain medication with food, take stool softeners while on pain medication. Do Not exceed 4000mg of acetaminophen (Tylenol) per day. Last dose of pain medication was given at . Your next dose may be taken at Follow-Up Appointments Follow Up with EKTA FARMER MD-ORT When 12/15/2021 01:15 PM EST Where: [address] [facility] [address] [place] [address]- Medications What How Much When Instructions Next Dose cholecalciferol (Vitamin D3) 50,000 Unit(s) Oral Weekly usually on Mondays fluticasone nasal (Flonase) 1 [place](s) Nostrils Both Every Day as needed for for nasal congestion Take your medications faithfully. Do NOT skip medication. Do NOT stop taking medications without the direction of a physician. Carry a list of your medications with you at all times, and take this medication list with you to your first follow up visit. Report any side effects. Avoid herbal remedies unless discussed with your physician. As part of your treatment plan, your physician may have prescribed a limited course of a controlled substance. This medication may be given to help people with moderate or severe pain or for other medical conditions, but there are risks involved with treatment. Common side effects may include nausea, constipation, drowsiness, sweating, itching, dry mouth, and rash. More serious side effects may include cognitive and motor impairment, like problems with thinking, concentrating, alertness, and movement (e.g. slowed reflexes), and driving and operating heavy machinery can be dangerous. It is important for you to talk to your physician if you have these side effects or questions. These controlled substances can produce physical dependence and be habit-forming if taken for an extended period of time, which means that the body has gotten used to them and may experience withdrawal symptoms if they are abruptly stopped. Withdrawal symptoms can include runny nose, sweating, goose bumps, diarrhea, abdominal cramping, rapid heartbeat, difficulty sleeping, and nervousness. Please dispose of unused and medications per pharmacy guidance. Education Materials Anterior Cervical Diskectomy and Fusion, Care After This sheet gives you information about how to care for yourself after your procedure. Your health care provider may also give you more specific instructions. If you have problems or questions, contact your health care provider. What can I expect after the procedure? After the procedure, it is common to have: ??? Neck pain. ??? Discomfort when swallowing. ??? Slight hoarseness. Follow these instructions at home: Medicines ??? Take gpjf-srj-khsciof and prescription medicines only as told by your health care provider. ??? If you were prescribed an antibiotic medicine, take it or use it as told by your health care provider. Do not stop using the antibiotic even if you start to feel better. ??? Ask your health care provider if the medicine prescribed to you: ? Requires you to avoid driving or using heavy machinery. ? Can cause constipation. You may need to take actions to prevent or treat constipation, such as: ? Drink enough fluid to keep your urine pale yellow. ? Take xuiq-qjx-cyyujtv or prescription medicines. ? Eat foods that are high in fiber, such as beans, whole grains, and fresh fruits and vegetables. ? Limit foods that are high in fat and processed sugars, such as fried and sweet foods. ??? If you are taking blood thinners: ? Talk with your health care provider before you take any medicines that contain aspirin or NSAIDs, such as ibuprofen. These medicines increase your risk for dangerous bleeding. ? Take your medicine exactly as told, at the same time every day. ? Avoid activities that could cause injury or bruising, and follow instructions about how to prevent falls. ? Wear a medical alert bracelet or carry a card that lists what medicines you take. If you have a neck brace: ??? Wear the brace as told by your health care provider. Remove it only as told by your health care provider. ??? Loosen the brace if your arms/fingers tingle, become numb, or turn cold and blue. ??? Keep the brace clean. ??? If the brace is not waterproof: ? Do not let it get wet. ? Cover it with a watertight covering when you take a bath or shower. Incision care ??? Follow instructions from your health care provider about how to take care of your incision. Make sure you: ? Wash your hands with soap and water for at least 20 seconds before and after you change your bandage (dressing). If soap and water are not available, use hand u.s. commissioner. ? Change your dressing as told by your health care provider. ? Leave stitches (sutures), skin glue, or adhesive strips in place. These skin closures may need to stay in place for 2 weeks or longer. If adhesive strip edges start to loosen and curl up, you may trim the loose edges. Do not remove adhesive strips completely unless your health care provider tells you to do that. ??? Check your incision area every day for signs of infection. Check for: ? Redness, swelling, or more pain. ? Fluid or blood. ? Warmth. ? Pus or a bad smell. Managing pain, stiffness, and swelling If directed, put ice on the injured area. ??? If you have a removable brace, remove it as told by your health care provider. ??? Put ice in a plastic bag. ??? Place a towel between your skin and the bag. ??? Leave the ice on for 20 minutes, 2???3 times a day. ??? Remove the ice if your skin turns bright red. This is very important. If you cannot feel pain, heat, or cold, you have a greater risk of damage to the area. Activity ??? Rest as told by your health care provider. ??? Avoid sitting for a long time without moving. Get up to take short walks every 1???2 hours. This is important to improve blood flow and breathing. Ask for help if you feel weak or unsteady. ??? Do not lift anything that is heavier than 10 lb (4.5 kg), or the limit that you are told, until your health care provider says that it is safe. ??? Do exercises as told by your health care provider. ??? Do not take baths, swim, or use a hot tub until your health care provider approves. Ask your health care provider if you may take showers. You may only be allowed to take sponge baths. ??? Return to your normal activities as told by your health care provider. Ask your health care provider what activities are safe for you. General instructions ??? Do not use any products that contain nicotine or tobacco, such as cigarettes, e-cigarettes, and chewing tobacco. These can delay bone healing. If you need help quitting, ask your health care provider. ??? Keep all follow-up visits. This is important. Follow-up visits include visits for physical therapy. Contact a health care provider if you have: ??? A fever. ??? Redness, swelling, or more pain around your incision. ??? Fluid or blood coming from your incision. ??? Pus or a bad smell coming from your incision. ??? Pain that is not controlled by your pain medicine. ??? Increasing hoarseness or trouble swallowing. Get help right away if you have: ??? Severe pain. ??? Sudden numbness or weakness in your arms. ??? Warmth, tenderness, or swelling in your calf. ??? Chest pain. ??? Difficulty breathing. These symptoms may represent a serious problem that is an emergency. Do not wait to see if the symptoms will go away. Get medical help right away. Call your local emergency services (911 in the [place] Do not drive yourself to the hospital. Summary ??? After the procedure, it is common to have neck pain, discomfort when swallowing, and slight hoarseness. ??? Follow instructions from your health care provider about how to take care of your incision. ??? Check your incision area every day for signs of infection. ??? Return to your normal activities as told by your health care provider. Ask your health care provider what activities are safe for you. ??? Contact a health care provider if you have signs of infection at your incision. This information is not intended to replace advice given to you by your health care provider. Make sure you discuss any questions you have with your health care provider. Document Revised: 02/25/2021 Document Reviewed: 02/25/2021 [employer] Patient Education ?? 2020 [employer] Anterior Cervical Diskectomy and Fusion Anterior cervical diskectomy and fusion is a surgery to remove and replace an intervertebral disk. Intervertebral disks are plates of cartilage located between the bones of the spine. This surgery is done when an intervertebral disk in the neck puts pressure on the spine or on a nerve. The surgery is done through the front (anterior) part of the neck. During the surgery, the damaged disk is removed and replaced with a plastic implant, a bone from another part of the body (bone graft), or both. Sometimes metal plates and screws are also used to keep the implant or bone graft in place and to join the bones together. Tell a health care provider about: ??? Any allergies you have. ??? All medicines you are taking, including vitamins, herbs, eye drops, creams, and zbvt-tow-aerlufb medicines. ??? Any problems you or family members have had with anesthetic medicines. ??? Any blood disorders you have. ??? Any surgeries you have had. ??? Any medical conditions you have or have had. ??? Whether you are or may be . What are the risks? Generally, this is a safe procedure. However, problems may occur, including: ??? Infection. ??? Bleeding, which can sometimes require a blood transfusion. ??? Injury to surrounding structures, including nerves. ??? Leakage of fluid from the brain or spinal cord. ??? Blood clots. ??? Temporary breathing or speaking difficulties. ??? Difficulty swallowing. What happens before the procedure? Staying hydrated Follow instructions from your health care provider about hydration, which may include: ??? Up to 2 hours before the procedure ??? you may continue to drink clear liquids, such as water, clear fruit juice, black coffee, and plain tea. Eating and drinking Follow instructions from your health care provider about eating and drinking, which may include: ??? 8 hours before the procedure ??? stop eating heavy meals or foods, such as meat, fried foods, or fatty foods. ??? 6 hours before the procedure ??? stop eating light meals or foods, such as toast or cereal. ??? 6 hours before the procedure ??? stop drinking milk or drinks that contain milk. ??? 2 hours before the procedure ??? stop drinking clear liquids. Medicines Ask your health care provider about: ??? Changing or stopping your regular medicines. This is especially important if you are taking diabetes medicines or blood thinners. ??? Taking medicines such as aspirin and ibuprofen. These medicines can thin your blood. Do not take these medicines unless your health care provider tells you to take them. ??? Taking wshz-kxq-bafnfrv medicines, vitamins, herbs, and supplements. Surgery safety Ask your health care provider: ??? How your surgery site will be marked. ??? What steps will be taken to help prevent infection. These may include: ? Removing hair at the surgery site. ? Washing skin with a germ-killing soap. ? Receiving antibiotic medicine. General instructions ??? Do not use any products that contain nicotine or tobacco for at least 4 weeks before the procedure. These products include cigarettes, e-cigarettes, and chewing tobacco. If you need help quitting, ask your health care provider. ??? Plan to have someone take you home from the hospital or clinic. What happens during the procedure? An IV will be inserted into one of your veins. ??? You will be given one or more of the following: ? A medicine to help you relax (sedative). ? A medicine to make you fall asleep (general anesthetic). ??? A breathing tube will be placed. ??? Your neck will be cleaned with a germ-killing solution (antiseptic solution). ??? Your surgeon will make an incision in the front of your neck. ??? Your neck muscles will be spread apart. ??? The damaged disk and any damaged bone will be removed. ??? The area where the disk was removed will be filled with a small plastic implant, a bone graft, or both. ??? Hardware may be put in your neck. ??? The incision will be closed with stitches (sutures). ??? Adhesive strips or skin glue may be placed across the incision. ??? A bandage (dressing) will be applied over the incision. The procedure may vary among health care providers and hospitals. What happens after the procedure? Your blood pressure, heart rate, breathing rate, and blood oxygen level will be monitored until you leave the hospital or clinic. ??? You may continue to receive antibiotics. ??? You can start to eat as soon as you feel comfortable. ??? You may be given a neck brace to wear. This brace limits your neck movement while your bones are fusing. ??? If you were given a sedative during the procedure, it can affect you for several hours. Do not drive or operate machinery until your health care provider says that it is safe. Summary ??? Anterior cervical diskectomy and fusion is a surgery to remove and replace an intervertebral disk. The surgery is done through the front (anterior) part of the neck. ??? Before the procedure, follow instructions from your health care provider about changing or stopping your medicines and about eating and drinking. ??? During the procedure, the damaged disk and any damaged bone will be removed. ??? You may be given a neck brace to wear. This brace limits your neck movement while your bones are fusing. This information is not intended to replace advice given to you by your health care provider. Make sure you discuss any questions you have with your health care provider. Document Revised: 02/25/2021 Document Reviewed: 02/25/2021 [employer] Patient Education ?? 2020 [employer]. Outpatient Surgery, Adult, Care After This sheet gives you information about how to care for yourself after your procedure. Your health care provider may also give you more specific instructions. If you have problems or questions, contact your health care provider. What can I expect after the procedure? After the procedure, it is common to have: ??? Tenderness and numbness at the surgical site. ??? Swelling, bruising, and numbness around the surgical site. ??? Nausea. Follow these instructions at home: For the time period you were told by your health care provider: ??? Rest. ??? Do not participate in activities where you could fall or become injured. ??? Do not drive or use machinery. ??? Do not drink alcohol. ??? Do not take sleeping pills or medicines that cause drowsiness. ??? Do not make important decisions or sign legal documents. ??? Do not take care of children on your own. Medicines ??? Take brlh-ftj-ettrlie and prescription medicines only as told by your health care provider. ??? If you were prescribed an antibiotic medicine, take it as told by your health care provider. Do not stop taking the antibiotic even if you start to feel better. ??? Ask your health care provider if the medicine prescribed to you: ? Requires you to avoid driving or using machinery. ? Can cause constipation. You may need to take these actions to prevent or treat constipation: ? Drink enough fluid to keep your urine pale yellow. ? Take uuvm-evh-fvqqxyq or prescription medicines. ? Eat foods that are high in fiber, such as beans, whole grains, and fresh fruits and vegetables. ? Limit foods that are high in fat and processed sugars, such as fried or sweet foods. Eating and drinking ??? Follow the diet recommended by your health care provider. ??? When you are hungry, begin eating light and bland foods, such as toast. Gradually return to your regular diet. ??? If you vomit: ? Drink clear fluids slowly and in small amounts as you are able. Clear fluids include water, ice chips, low-calorie sports drinks, and fruit juice that has water added (diluted fruit juice). ? Eat bland, fusv-kj-cxlznm foods in small amounts as you are able. These foods include bananas, applesauce, rice, lean meats, toast, and crackers. Incision care ??? Follow instructions from your health care provider about how to take care of an incision, if you have one. Make sure you: ? Wash your hands with soap and water for at least 20 seconds before and after you change your bandage (dressing). If soap and water are not available, use hand u.s. commissioner. ? Change your dressing as told by your health care provider. ? Leave stitches (sutures), skin glue, or adhesive strips in place. These skin closures may need to stay in place for 2 weeks or longer. If adhesive strip edges start to loosen and curl up, you may trim the loose edges. Do not remove adhesive strips completely unless your health care provider tells you to do that. ??? Check your incision area every day for signs of infection. Check for: ? Redness, swelling, or pain. ? Fluid or blood. ? Warmth. ? Pus or a bad smell. Activity ??? Do not play contact sports until your health care provider says it is okay. ??? Follow instructions from your health care provider about lifting heavy objects. You may be told not to lift things that weigh more than a certain amount. ??? Return to your normal activities as told by your health care provider. Ask your health care provider what activities are safe for you. General instructions ??? If you have sleep apnea, surgery and certain medicines can increase your risk for breathing problems. Follow instructions from your health care provider about wearing your sleep device: ? Anytime you are sleeping, including during daytime naps. ? While taking prescription pain medicines, sleep medicines, or medicines that make you drowsy. ??? Have a responsible adult stay with you for the time you are told. It is important to have someone help care for you until you are awake and alert. ??? Do not use any products that contain nicotine or tobacco, such as cigarettes, e-cigarettes, and chewing tobacco. These can delay healing after surgery. If you need help quitting, ask your health care provider. ??? Ask your health care provider when you can take baths or showers, swim, or use a hot tub. You may only be allowed to take sponge baths. ??? Keep all follow-up visits as told by your health care provider. This is important. Contact a health care provider if: ??? You have any of these signs of infection: ? Redness, swelling, or pain around your incision or IV site. ? Fluid or blood coming from your incision. ? Warmth coming from your incision. ? Pus or a bad smell coming from your incision. ? A fever. ??? You feel light-headed or you faint. ??? You develop a rash. ??? You keep feeling nauseous or keep vomiting. ??? You have severe pain, even after taking the medicines your health care provider has prescribed or recommended. ??? You have constipation. Get help right away if: ??? You cannot urinate. ??? You have trouble breathing. ??? You have chest pain. ??? Your legs become painful or swollen. These symptoms may represent a serious problem that is an emergency. Do not wait to see if the symptoms will go away. Get medical help right away. Call your local emergency services (911 in the [place] Do not drive yourself to the hospital. Summary ??? Nausea is common after a procedure. ??? Have a responsible adult stay with you for the time you are told. It is important to have someone help care for you until you are awake and alert. ??? Follow the diet recommended by your health care provider. If you vomit, drink clear fluids slowly and eat bland, pxsn-mh-scxrmt foods in small amounts. ??? Ask your health care provider what activities are safe for you. This information is not intended to replace advice given to you by your health care provider. Make sure you discuss any questions you have with your health care provider. Document Revised: 03/06/2021 Document Reviewed: 08/28/2020 [employer] Patient Education ?? 2020 [employer]. Emergency Awareness and Preventative Care STROKE is an EMERGENCY Every Minute Counts Act FAST and Check for these signs: FACE Does the face look uneven? ARM Does one arm drift down? SPEECH Does their speech sound strange? TIME Call at any sign of stroke Stroke Risk Factors Atrial Fibrillation (irregular heartbeat) Diabetes Family history of stroke Heart Disease Heavy alcohol use High Blood Pressure High Cholesterol Physical inactivity and obesity Smoking Cigarette Smoking The facts are clear, cigarette smoking will shorten your life. Smoking can cause many illnesses along the way. As a healthcare provider, we recommend that you stop smoking. Assistance with quitting is available by contacting 5-851-BNUDNOW. This is a free resource providing counseling, support, and referral. Or you may contact your personal physician. National Suicide Prevention Lifeline: The National Suicide Prevention Lifeline is a national network of local crisis centers that provides free and confidential emotional support to people in suicidal crisis or emotional distress 24 hours a day, 7 days a week. Don't Wait! Stop a Heart Attack Before it Starts What is a heart attack? A heart attack is damage or to a part of the heart from severely decreased or lack of blood flow to the heart. Over time, arteries can become narrow from the buildup of fat and cholesterol, which is called plaque. The plaque can rupture causing a blood clot to form. When the blood clot forms, the artery can become severely narrowed or completely blocked, causing a heart attack. Heart attack is the leading cause of in the [place]. 85% of muscle damage occurs within the first 2 hours. Delay in the recognition of heart attack symptoms increases the chances of . Know the early symptoms of a heart attack: Nausea Feeling of fullness in chest Jaw Pain Pain that travels down one or both arms Fatigue/being tired Anxiety Back Pain Chest pressure, squeezing, or discomfort Shortness of breath Sweating, or a cold sweat Feeling of impending doom There are unusual signs of a heart attack, too! Women, the elderly, and diabetics may present with atypical symptoms: Fainting/dizziness Weakness Confusion Risk Factors for a Heart Attack Some heart disease risk factors, such as age and family history, cannot be changed. Others, like smoking and lack of exercise, can be changed. Smoking High Cholesterol High Blood Pressure Family History Obesity Age Gender (Males are at higher risk) Lack of Exercise Diabetes Diet Stress Excessive Alcohol Intake If you or someone you know is experiencing the signs and symptoms of a heart attack, DON???T DELAY. Call immediately and seek help. If someone collapses, perform CPR! Do not attempt to drive if you are having symptoms of heart attack. Hands-Only CPR Why Hands-Only CPR? Hands-Only CPR has been shown to be as effective as conventional CPR for cardiac arrests that occur outside of a hospital. Survival depends on immediately receiving CPR from someone nearby. How do you perform Hands-Only CPR? There are two easy steps: Call if you see a teen or adult collapse Push hard and fast in the center of the chest at a beat of 100 beats per minute. Save a life! 4 WAYS TO GET AHEAD OF SEPSIS SEPSIS is a MEDICAL EMERGENCY. Time matters! Infections put you and your family at risk for a life-threatening condition called sepsis. Sepsis is the body's extreme response to an infection. It is life-threatening, and without timely treatment, sepsis can rapidly lead to tissue damage, organ failure, and . Sepsis happens when an infection you already have-in your skin, lungs, urinary tract or somewhere else-triggers a chain reaction throughout your body. 1 PREVENT INFECTIONS Take good care of chronic conditions. Talk to your doctor about getting the recommended vaccines. 2 PRACTICE GOOD HYGIENE Wash your hands frequently. Keep cuts or open sores clean and covered until they are healed. 3 KNOW THE SYMPTOMS Confusion or disorientation Shortness of breath High heart rate Fever, shivering, or feeling very cold Extreme pain or discomfort Clammy or sweaty skin 4 ACT FAST Get medical care IMMEDIATELY if you suspect sepsis or if you have an infection that is not getting better or is getting worse. To learn more about sepsis and how to prevent infections, visit www.cdc.gov/sepsis. Test Results Laboratory or Other Results This Visit (last charted value for your 12/01/2021 visit) Microbiology 12/01/2021 7:37 AM SARS-CoV-2 (COVID19 PCR): Negative Patient Name:DAISY MORRIS I have received this information and was given the opportunity to ask questions. Patient/Pressure Controller Name: Patient/Pressure Controller Signature: Relationship to Patient: Clinician/Hospital Pressure Controller Signature: Date: documented in this encounter Plan of Treatment Not on file documented as of this encounter Visit Diagnoses Not on filedocumented in this encounter
--- OUTSIDE RECORDS SUMMARY | 2025-06-03 14:05 | XMS_ITS | Encounter Summary ---
Author Organization [employer] ([place], [place], [place], [place]) Address [address] [place] [address] Care Team Providers Care Latent Fingerprint Examiner Name Role Phone Unavailable Primary Care Provider Unavailabl e Encounter Details Date Type Department Care Team (Late st Contact Info) Description 12/01/2021 Transcribed Document [facility] [place] [facility] [place] [address] ProviderWinsome MD [address] [place] [address] Social History Tobacco Use Types Packs/Day Years Used Date Smoking Tobacco: Never Assessed Comments Unknown Sex and Gender Information Value Date Recorded Sex Assigned at Female 05/18/2022 8:55 PM CDT Legal Sex Female 8:55 PM CDT Gender Identity Female 05/18/2022 8:55 PM CDT Sexual Orientation Not on file documented as of this encounter Miscellaneous Notes * Cerner Conversion Note - Winsome Sifuentes MD - 12/01/2021 12:08 PM CHIEF SERVICE OBSERVER Patient Education Materials Follows: Anterior Cervical Diskectomy and Fusion, Care After [...] these instructions at home: Medicines ??? Take kwzl-uhe-zxeawqi and prescription medicines only as told by [...] keep your urine pale yellow. ? Take cfwh-ldm-hdjzuth or prescription medicines. ? Eat foods that [...] and water are not available, use hand pole classifier. ? Change your dressing as told by [...] Leave the ice on for 20 minutes, 2?3 times a day. ??? Remove the ice if your skin turns bright red. This is very important. If you cannot feel pain, heat, or cold, you have a greater risk of damage to the area. Activity ??? Rest as told by your health care provider. ??? Avoid sitting for a long time without moving. Get up to take short walks every 1?2 hours. This is important to improve blood [...] provider. Document Revised: 02/25/2021 Document Reviewed: 02/25/2021 [employer] Patient Education ? 2020 [employer] Anterior Cervical Diskectomy and Fusion Anterior [...] including vitamins, herbs, eye drops, creams, and urvt-ozl-wxjlatu medicines. ??? Any problems you or family [...] Up to 2 hours before the procedure ? you may continue to drink clear liquids, such as water, clear fruit juice, black coffee, and plain tea. Eating and drinking Follow instructions from your health care provider about eating and drinking, which may include: ??? 8 hours before the procedure ? stop eating heavy meals or foods, such as meat, fried foods, or fatty foods. ??? 6 hours before the procedure ? stop eating light meals or foods, such as toast or cereal. ??? 6 hours before the procedure ? stop drinking milk or drinks that contain milk. ??? 2 hours before the procedure ? stop drinking clear liquids. Medicines Ask your health care provider about: ??? Changing or stopping your regular medicines. This is especially important if you are taking diabetes medicines or blood thinners. ??? Taking medicines such as aspirin and ibuprofen. These medicines can thin your blood. Do not take these medicines unless your health care provider tells you to take them. ??? Taking nema-pli-rlehohb medicines, vitamins, herbs, and supplements. Surgery safety [...] provider. Document Revised: 02/25/2021 Document Reviewed: 02/25/2021 [employer] Patient Education ? 2020 [employer] Procedures Outpatient Surgery, Adult, Care After This sheet [...] children on your own. Medicines ??? Take xiau-jva-inimymm and prescription medicines only as told by [...] keep your urine pale yellow. ? Take lrwk-jom-usgmxru or prescription medicines. ? Eat foods that [...] added (diluted fruit juice). ? Eat bland, csno-mk-hyfbhl foods in small amounts as you are [...] and water are not available, use hand pole classifier. ? Change your dressing as told by [...] drink clear fluids slowly and eat bland, tcpr-te-qvsgsd foods in small amounts. ??? Ask your health care provider what activities are safe for you. This information is not intended to replace advice given to you by your health care provider. Make sure you discuss any questions you have with your health care provider. Document Revised: 03/06/2021 Document Reviewed: 08/28/2020 [employer] Patient Education ? 2020 [employer] documented in this encounter Plan of Treatment Not on file documented as of this encounter Visit Diagnoses Not on filedocumented in this encounter
--- OUTSIDE RECORDS SUMMARY | 2025-06-03 14:05 | XMS_ITS | Encounter Summary ---
Author Organization [employer] ([place], [place], [place], [place]) Address [address] [place] [address] Care Team Providers Care Door Opener Name Role Phone Unavailable Primary Care Provider Unavailabl e Encounter Details Date Type Department Care Team (Late st Contact Info) Description 09/14/2021 Transcribed Document [facility] Family Medicine [address] [place] [address] ProviderWinsome MD [address] [place] [address] Social History Tobacco Use Types [...] Cerner Conversion Note - Historical ProviderMD - 09/14/2021 2:31 PM CDT UM Authorization Entered On: 09/14/2021 14:31 EDT Performed On: 09/14/2021 14:31 EDT by ANA MEADE, Electric Motor Repairing Supervisor Primary Insurance Authorization Authorization and Policy Numbers : Insurance 1 Health Plan: [facility] Policy Number: [id number] Authorization Number: Insurance Primary Name : [facility] [id number] Authorization Status-Primary : No precert required Authorized Service Begin Date-Primary : 09/15/2021 EDT Observation Authorization Nbr-Primary : NPR per [facility] notes Authorization Comments-Primary : pt is miguelina for OP cervical discectomy fusion anterior on 09/15/21 AB NPR per [facility] notes Historical Authorization Comments-Primary : No Authorization Comments Found ANA MEADE, Electric Motor Repairing Supervisor - 09/14/2021 14:31 EDT Electronically signed by Jenniffer Qureshi Conversion Transit Proof Machine Operator Cerner at 03/09/2023 1:45 PM CDT documented in this encounter Plan of Treatment Not on file documented as of this encounter Visit Diagnoses Not on filedocumented in this encounter
--- OUTSIDE RECORDS SUMMARY | 2025-06-03 14:05 | XMS_ITS | Encounter Summary ---
Author Organization [employer] ([place], [place], [place], [place]) Address [address] [place] [address] Care Team Providers Care Networking Technology Instructor Name Role Phone Unavailable Primary Care Provider Unavailabl e Encounter Details Date Type Department Care Team (Late st Contact Info) Description 11/26/2021 Transcribed Document [facility] [place] [facility] [place] [address] ProviderWinsome MD [address] [place] [address] Social History Tobacco Use Types [...] Cerner Conversion Note - Historical ProviderMD - 11/26/2021 3:44 PM DYNAMIC BALANCER PAT Adult Entered On: 11/26/2021 15:51 EST Performed On: 11/26/2021 15:44 EST by TALISHA ERVIN RN Height and Weight, Clinical Dosing Height Source : Measured Height Entry Format : [place] Height, Feet : 5 ft(Converted to: 152 cm, 60 Inch) Height, Inches : 2 Inch(Converted to: 0 ft 2 Inch, 5.08 cm) Clinical Height : 157.48 cm Weight Source : Standing scale Weight Entry Format : [place] Clinical Dosing Weight : 49.2 kg Weight, Pounds : 108 lb Weight, Ounces : 4 oz Body Surface Area (BSA) : 1.47 m2 Body Mass Index : 19.8 kg/m2 [place] Body Weight : 50 kg BUFFY HANSEN RN - 12/01/2021 7:37 EST Health Histories Smoking Status : 10 or more cigarettes (1/2 pack or more)/day in last 30 days Smokeless Tobacco Status : Never Desires Tobacco Cessation Medication : No Reason for No Tobacco Cessation Medication : Refuses FDA approved medications Implant/Device Type, Full Stack Python Developer and Model : TALISHA Herman RN - 11/26/2021 15:44 EST Social History (As Of: 11/26/2021 15:51:32 EST) Tobacco: 10 or more cigarettes (1/2 pack or more)/day in last 30 days Smoking Status. Never Smokeless Tobacco Status. Years of Use: 23. Packs/Tins Daily: 1. Last Used: Nov 2021. (Last Updated: 11/26/2021 15:45:53 EST by TALISHA ERVIN RN) Alcohol: Alcohol Use History No. (Last Updated: 11/26/2021 15:45:58 EST by TALISHA ERVIN RN) Substance Abuse: Drug Use Hx: No. Use in Last 12 Months: No. (Last Updated: 11/26/2021 15:46:02 EST by TALISHA ERVIN RN) Infectious Disease History Does patient have symptoms of COVID-19? : No Has the Patient Been Tested for COVID-19 in the last 14 days? : PreProcedure/NON-PUI COVID-19 Testing Does the Patient state known exposure to a COVID-19 positive case in the last 14 days? : No Does Patient want a COVID-19 Vaccine? : No BUFFY HANSEN RN - 12/01/2021 7:37 EST Infectious Disease Risk Screening Grid Cough < 2 wks of unknown origin : NO Cough > 2 weeks : NO Blood in Sputum : NO Fever or self-reported Fever : NO Rash of unknown origin : NO Headache : NO Stiff neck : NO Night Sweats : NO Unexplained Weight Loss : NO Diarrhea (3 episode per day) : NO BUFFY HANSEN RN - 12/01/2021 7:37 EST INF Disease TB Screening Calc : 0 BUFFY HANSEN RN - 12/01/2021 7:37 EST Patient Vaccinated for COVID-19 : Not vaccinated Physical contact outside [place] in the last 30 days : No Hospitalized in Foreign Country : No Infectious Disease History : Chicken pox/Shingles, Herpes INF Disease Recent Travel Calc : 0 TALISHA ERVIN RN - 11/26/2021 15:44 EST COVID19 PreProcedure Screening Date PreProcedure COVID-19 test known? : Yes Date of PreProcedure COVID-19 : 12/01/2021 EST Has patient been isolated since the test : Yes Exposed to COVID19 symptoms since test? : No BUFFY HANSEN RN - 12/01/2021 7:37 EST Is this an Emergent or Add on Procedure? : No TALISHA ERVIN RN - 11/26/2021 15:44 EST Anesthesia/Transfusion History Family History of Anesthesia Reaction : No prior transfusion(s) Transfusion History : Prior anesthesia without reaction Family History of Anesthesia Reaction : None TALISHA ERVIN RN - 11/26/2021 15:44 EST Functional Assessment Functional ADL Evaluation Index EBN Bathing : Independent (2) Dressing : Independent (2) Toileting : Independent (2) Transferring Bed or Chair : Independent (2) Continence : Independent (2) Feeding : Independent (2) TALISHA ERVIN RN - 11/26/2021 15:44 EST ADL Index Score : 12 TALISHA ERVIN RN - 11/26/2021 15:44 EST Advance Directive Patient has Advance Directive *Q : No, patient refuses Advance Directive information TALISHA ERVIN RN - 11/26/2021 15:44 EST Spiritual/Cultural Needs Any Spiritual/Cultural Needs or Requests : Yes Spiritual/Cultural Needs Comment : prayer on DOS 12/01/2021 Spiritual/Cultural Needs Comment : prayer on DOS 12/01/2021 TALISHA ERVIN RN - 11/26/2021 15:44 EST [place] Suicide Severity Rating Scale (C-SSRS) CSSRS Past Month Wish to be : No CSSRS Past Month Suicidal Thoughts : No CSSRS Lifetime Suicide Behavior : No Suicide Severity Rating Score : 0 Suicide Severity Rating : No Additional Care Required at this time TALISHA ERVIN RN - 11/26/2021 15:44 EST Psychosocial History Do You Have a History of the Following? : Anxiety, Other: hx of panic attacks Currently in Unsafe Situation : No TALISHA ERVIN RN - 11/26/2021 15:44 EST General Info Preferred Name : Daisy Vyas Family/Rep/Phys Notified of Admit : No Emergency Contact #1 : Abbey Mcdonough Emergency Contact #1 cell Emergency Contact #1 Relationship : mother Emergency Contact #2 : - Emergency Contact #2 Phone Number : - Emergency Contact #2 Relationship : - Chief Complaint : neck pain w/ looking up; BUE weakness Information Obtained From : Patient Primary Language : Vietnamese Communication Barrier : None Full Stack Web Developer Needed : No TALISHA ERVIN RN - 11/26/2021 15:44 EST Fredo Scale Fredo Sensory Perception : Slightly limited Fredo Moisture : Rarely moist Fredo Activity : Walks frequently Fredo Mobility : No limitation Fredo Nutrition : Excellent Fredo Friction and Shear : No apparent problem Fredo Score : 22 TALISHA ERVIN RN - 11/26/2021 15:44 EST Sleep Apnea Risk Assmt BMI Greater Than 35 kg/m2 : No Neck Circumference Greater Than 40 cm : No STOP-BANG Sleep Apnea Risk Level Score : 2 BUFFY HANSEN RN - 12/01/2021 7:37 EST Hx of Obstructive Sleep Apnea Diagnosis : No Snore Loudly : No Tired, Fatigued, or Sleepy During Day : Yes Observed Stopping Breathing During Sleep : No Have/Are Being Treated for Hypertension : Yes Age over 50 Years Old : No Gender Male : No TALISHA ERVIN RN - 11/26/2021 15:44 EST documented in this encounter Plan of Treatment Not on file documented as of this encounter Visit Diagnoses Not on filedocumented in this encounter
--- OUTSIDE RECORDS SUMMARY | 2025-06-03 14:05 | XMS_ITS | Encounter Summary ---
Author Organization [employer] ([place], [place], [place], [place]) Address [address] [place] [address] Care Team Providers Care Groundskeeper Supervisor Name Role Phone Unavailable Primary Care Provider Unavailabl e Encounter Details Date Type Department Care Team (Late st Contact Info) Description 12/01/2021 Transcribed Document [facility] Radiology [address] [place] [address] Wilver Rowe MD [address] [facility] 2nd [place] [address] Social History Tobacco Use Types [...] Note - Wilver Rowe MD - 12/01/2021 12:02 PM EST DATE OF PROCEDURE: SURGEON: Wilver Rowe MD PROCEDURE PERFORMED: C5-6 anterior cervical diskectomy and fusion. 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 ESTIMATED BLOOD LOSS: 10 mL. 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 She had failed conservative treatment. She was informed of the risks, benefits, and alternatives of the above-mentioned procedure and wished to proceed. FINDINGS: The patient was taken to the operating room and placed in a supine position. After sterile prep and drape and administration of preoperative antibiotics, a left-sided approach was performed. We incised the platysma, and we bluntly dissected an interval between trachea and carotid sheath. We identified the anterior spine. We placed traction pins at C5 and C6, and C-arm was used to verify appropriate level. Diskectomy was performed at this level. Posterior longitudinal ligament was removed. Disk fragments were removed and afterwards an instrument could easily be passed into the foramen ensuring it was adequately decompressed. We removed anterior and posterior osteophytes as well. We then placed a 5 x 7 VG2 graft followed by DePuy plate with 4 x 14 mm screws. We tightened the screw at the plate using torque limiter. Strict hemostasis was obtained. C-arm was used to verify appropriate position of all implants. The wounds were closed with Vicryl and Monocryl. She was taken to recovery in sterile dressing. There were no complications. Plan is to discharge her home. She will follow up with me in 2 weeks. /[id number] MD OMAR De Anda/AQ / OMAR / MODL /[id number] CC: Lillie Ivory NP documented in this encounter Plan of Treatment Not on file documented as of this encounter Visit Diagnoses Not on filedocumented in this encounter
--- OUTSIDE RECORDS SUMMARY | 2025-06-03 14:06 | XMS_ITS | Clinical Summary ---
Author Organization [employer] ([place], [place], [place], [place]) Address [address] [place] [address] Care Team Providers Care Wholesaler Name Role Phone Unavailable Primary Care Provider [...]
--- OUTSIDE RECORDS SUMMARY | 2025-06-03 14:06 | XMS_ITS | Data Portability ---
Author Organization [employer] SB - MSE Address [address] [place] [address] Assessment No assessment recorded. Plan of Treatment Reminders Order Date Submit Date Provider Last Modified By Organization Details Last Modified Time Details Appointments None recorded. Lab vitamin D, 25-hydroxy, total, serum 2024 025 [facility], [address] [place] [address], [address], 5 08:12:39 unlisted lab - TSH reflex to t4f [address] [facility], [address] [place] [address], [address], 5 08:12:40 CBC w/ auto diff 2024 025 [facility], [address] [place] [address], [address], 5 08:12:38 CMP, serum or plasma 2024 025 [facility] [place], [address], 5 08:12:39 lipid panel, serum 2023 024 [facility], [address], [place], [address], 4 05:53:27 CMP, serum or plasma 2023 024 [facility], [address], [place], [address], 4 05:53:28 vitamin D, 25-hydroxy, total, serum 2023 024 [facility], [address], [place], [address], 4 05:53:29 CBC w/ auto diff 2023 024 [facility], [address], [place], [address], 4 05:53:28 rapid flu (A+B) 2023 024 [facility], [address] [place] [address], [id number], 4 12:30:08 rapid SARS CoV 2 Ag, QL, IA, upper respiratory specimen 2023 024 [facility], [address] [place] [address], [id number], 4 12:29:57 Referral orthopedic spine surgeon referral - first avail. She needs an appt on Tuesday or Tuesday please 2024 025 GLENN Rowe, [address], [place], [address], 5 14:11:54 Procedures None recorded. Surgeries None recorded. Imaging MAMMO, screening, digital, bilateral [address] Scheduling Department -New Scheduling Process, [address], [place], [address], 5 16:15:06 MAMMO, screening, digital, bilateral 2023 024 [email or web address] [facility] (Scheduling), [address], [place], [address], 4 09:24:22 Medication Orders cetirizine [address] [facility], [address] [place], [address], 5 16:39:43 fluticasone propionate 50 mcg/actuati on nasal spray,suspe nsion [address] [facility], [address] [place], [address], 5 16:39:43 Kalpana Allergy 180 mg tablet [address] [facility], [address] [place], [address], 5 14:15:12 triamcinolo ne acetonide 40 mg/mL suspension for injection 2023 024 [email or web address] Not available 4 12:46:24 fluticasone propionate 50 mcg/actuati on nasal spray,suspe nsion 2023 025 [facility], [address] [place] [address], [address], 5 14:22:05 amoxicillin 875 mg tablet 2023 024 [facility], [address] [place] [address], [address], 4 13:42:45 Patient TargetsNo targets recorded. Patient Instructions Encounter Date Encounter Id Patient Instructions Last Modified By Organization Details Last Modified Time 01/14/2024 [id number] Follow up if worsening symptoms or no improvement x 1 week [email or web address] Not available 01/14/2024 11:54:03 Reason for Referral Orthopedic Spine Surgeon Ref erral for Cervical disc disorder with radiculopathy first avail. She needs an appt on Tuesday or Tuesday please Referring Physician: Lillie Ivory, Family Medicine, Encounter Date: 01/02/2025 Results Created Date Observation Date Name Description Value Unit Range Abnormal Flag Note LastModifiedBy Organization Detail LastModifiedTime 01/14/20 24 01/14/2024 rapid flu (A+B) Flu A negati ve Not Available [address], [address], 01/14/2024 11:28:40 01/14/20 24 01/14/2024 rapid flu (A+B) Flu B negati ve Not Available [address], [address], 01/14/2024 11:28:40 01/14/20 24 01/14/2024 rapid SARS CoV 2 Ag, QL, IA, upper respi rator y speci men SARS CoV Ag negati ve Not Available [address], [address], 01/14/2024 11:28:41 03/09/20 24 03/10/2024 LIPID PANEL WITH REFLE X TO DIREC T LDL cholesterol, total 258 mg/dL <200 high Not Available [facility] [place] [facility] [address] [place], [address], 03/10/2024 07:53:03 03/09/20 24 03/10/2024 LIPID PANEL WITH REFLE X TO DIREC T LDL HDL cholesterol 42 mg/dL > or = 50 low Not Available [facility] [place] [facility] [address] [place], [address], 03/10/2024 07:53:03 03/09/20 24 03/10/2024 LIPID PANEL WITH REFLE X TO DIREC T LDL triglyceride s 194 mg/dL <150 high Not Available [facility] [place] [facility] [address], [place], [address], 03/10/2024 07:53:03 03/09/20 24 03/10/2024 LIPID PANEL WITH REFLE X TO DIREC T LDL LDL-choleste rol 181 mg/dL _(micaela c) high Refer ence range : <100 Arabella able range <100 mg/dL for prima ry preve ntion ; <70 mg/dL for patie nts with CHD or diabe tic patie nts with > or = 2 CHD risk facto rs. LDL-C is now calcu lated using the Abril n-Hop kins calcu latio n, which is a valid ated novel brynno d provi ding elayne r accur acy than the Fried carolyn equat ion in the estim ation of LDL-C . Abril garnica SS et al. RAUL. 2013; 310(1 9): 2061- 2068 (http ://ed ucati on.Qu alotrivago. com/f aq/FA Q164) Not Available [facility] [place] [facility] [address] [facility], [place], [address], 03/10/2024 07:53:03 03/09/20 24 03/10/2024 LIPID PANEL WITH REFLE X TO DIREC T LDL chol/HDLC ratio 6.1 (calc ) <5.0 high Not Available [facility] [place] [facility] [address] [place], [address], 03/10/2024 07:53:03 03/09/20 24 03/10/2024 LIPID PANEL WITH REFLE X TO DIREC T LDL non HDL cholesterol 216 mg/dL _(micaela c) <130 high For patie nts with diabe tucker plus 1 major ASCVD risk facto r, treat ing to a non-H DL-C goal of <100 mg/dL (LDL- C of <70 mg/dL ) is consi dered a thera peuti c optio n. Not Available [facility] [place] [facility] [address] [place], [address], 03/10/2024 07:53:03 03/09/20 24 03/10/2024 COMPR EHENS GEOFF METAB OLIC PANEL glucose 88 mg/dL 65-99 normal Fasti ng refer ence inter kaushik Not Available [facility] [address] [place], [address], 03/10/2024 07:53:04 03/09/20 24 03/10/2024 COMPR EHENS GEOFF METAB OLIC PANEL urea nitrogen (BUN) 7 mg/dL 7-25 normal Not Available [facility] [address] [place], [address], 03/10/2024 07:53:04 03/09/20 24 03/10/2024 COMPR EHENS GEOFF METAB OLIC PANEL creatinine 0.58 mg/dL 0.50-0 .99 normal Not Available [facility] [address] [place], [address], 03/10/2024 07:53:04 03/09/20 24 03/10/2024 COMPR EHENS GEOFF METAB OLIC PANEL eGFR 117 mL/mi n/1.7 3m2 > or = 60 normal Not Available [facility] [address] [place], [address], 03/10/2024 07:53:04 03/09/20 24 03/10/2024 COMPR EHENS GEOFF METAB OLIC PANEL BUN/creatini ne ratio SEE NOTE: (calc ) 6-22 Not Repor jordon: BUN and Creat inine are withi n refer ence range . Not Available [facility] [address] [place], [address], 03/10/2024 07:53:04 03/09/20 24 03/10/2024 COMPR EHENS GEOFF METAB OLIC PANEL sodium 136 mmol/ L 135-14 6 normal Not Available [facility] [address] [place], [address], 03/10/2024 07:53:04 03/09/20 24 03/10/2024 COMPR EHENS GEOFF METAB OLIC PANEL potassium 4.2 mmol/ L 3.5-5. 3 normal Not Available [facility] [address] [place], [address], 03/10/2024 07:53:04 03/09/20 24 03/10/2024 COMPR EHENS GEOFF METAB OLIC PANEL chloride 102 mmol/ L 98-110 normal Not Available [facility] [address] [place], [address], 03/10/2024 07:53:04 03/09/20 24 03/10/2024 COMPR EHENS GEOFF METAB OLIC PANEL carbon dioxide 27 mmol/ L 20-32 normal Not Available [facility] [address] [place], [address], 03/10/2024 07:53:04 03/09/20 24 03/10/2024 COMPR EHENS GEOFF METAB OLIC PANEL calcium 9.4 mg/dL 8.6-10 .2 normal Not Available [facility] [address] [place], [address], 03/10/2024 07:53:04 03/09/20 24 03/10/2024 COMPR EHENS GEOFF METAB OLIC PANEL protein, total 7.1 g/dL 6.1-8. 1 normal Not Available [facility] [address] [place], [address], 03/10/2024 07:53:04 03/09/20 24 03/10/2024 COMPR EHENS GEOFF METAB OLIC PANEL albumin 4.3 g/dL 3.6-5. 1 normal Not Available [facility] [address] [place], [address], 03/10/2024 07:53:04 03/09/20 24 03/10/2024 COMPR EHENS GEOFF METAB OLIC PANEL globulin 2.8 g/dL_ (calc ) 1.9-3. 7 normal Not Available [facility] [address] [place], [address], 03/10/2024 07:53:04 03/09/20 24 03/10/2024 COMPR EHENS GEOFF METAB OLIC PANEL albumin/glob ulin ratio 1.5 (calc ) 1.0-2. 5 normal Not Available [facility] [address] [place], [address], 03/10/2024 07:53:04 03/09/20 24 03/10/2024 COMPR EHENS GEOFF METAB OLIC PANEL bilirubin, total 0.6 mg/dL 0.2-1. 2 normal Not Available [facility] [address] [place], [address], 03/10/2024 07:53:04 03/09/20 24 03/10/2024 COMPR EHENS GEOFF METAB OLIC PANEL alkaline phosphatase 69 U/L 31-125 normal Not Available [facility] [address] [place], [address], 03/10/2024 07:53:04 03/09/20 24 03/10/2024 COMPR EHENS GEOFF METAB OLIC PANEL AST 16 U/L 10-30 normal Not Available [facility] [address] [place], [address], 03/10/2024 07:53:04 03/09/20 24 03/10/2024 COMPR EHENS GEOFF METAB OLIC PANEL ALT 16 U/L 6-29 normal Not Available [facility] [address] [place], [address], 03/10/2024 07:53:04 03/09/20 24 03/10/2024 CBC (INCL UDES DIFF/ PLT) white blood cell count 6.1 thous and/u L 3.8-10 .8 normal Not Available [facility] [place] [facility] [address] [facility], [place], [address], 03/10/2024 05:53:28 03/09/20 24 03/10/2024 CBC (INCL UDES DIFF/ PLT) red blood cell count 4.27 cintia on/uL 3.80-5 .10 normal Not Available [facility] [place] [facility] [address] [facility], [place], [address], 03/10/2024 05:53:28 03/09/20 24 03/10/2024 CBC (INCL UDES DIFF/ PLT) hemoglobin 13.8 g/dL 11.7-1 5.5 normal Not Available [facility] [place] [facility] [address] [facility], [place], [address], 03/10/2024 05:53:28 03/09/20 24 03/10/2024 CBC (INCL UDES DIFF/ PLT) hematocrit 40.3 % 35.0-4 5.0 normal Not Available [facility] [address] [facility], [place], [address], 03/10/2024 05:53:28 03/09/20 24 03/10/2024 CBC (INCL UDES DIFF/ PLT) MCV 94.4 fL 80.0-1 00.0 normal Not Available [facility] [place] [facility] [address], [place], [address], 03/10/2024 05:53:28 03/09/20 24 03/10/2024 CBC (INCL UDES DIFF/ PLT) MCH 32.3 pg 27.0-3 3.0 normal Not Available [facility] [address] [facility], [place], [address], 03/10/2024 05:53:28 03/09/20 24 03/10/2024 CBC (INCL UDES DIFF/ PLT) MCHC 34.2 g/dL 32.0-3 6.0 normal Not Available [facility] [place] [facility] [address], [place], [address], 03/10/2024 05:53:28 03/09/20 24 03/10/2024 CBC (INCL UDES DIFF/ PLT) RDW 13.0 % 11.0-1 5.0 normal Not Available [facility] [place] [facility] [address], [place], [address], 03/10/2024 05:53:28 03/09/20 24 03/10/2024 CBC (INCL UDES DIFF/ PLT) platelet count 182 thous and/u L 140-40 0 normal Not Available [facility] [place] [facility] [address], [place], [address], 03/10/2024 05:53:28 03/09/20 24 03/10/2024 CBC (INCL UDES DIFF/ PLT) MPV 10.8 fL 7.5-12 .5 normal Not Available [facility] [place] [facility] [address], [place], [address], 03/10/2024 05:53:28 03/09/20 24 03/10/2024 CBC (INCL UDES DIFF/ PLT) absolute neutrophils 3245 cells /uL 1500-7 800 normal Not Available [facility] [place] [facility] [address], [place], [address], 03/10/2024 05:53:28 03/09/20 24 03/10/2024 CBC (INCL UDES DIFF/ PLT) absolute lymphocytes 2440 cells /uL 850-39 00 normal Not Available [facility] [address], [place], [address], 03/10/2024 05:53:28 03/09/20 24 03/10/2024 CBC (INCL UDES DIFF/ PLT) absolute monocytes 366 cells /uL 200-95 0 normal Not Available [facility] [place] [facility] [address], [place], [address], 03/10/2024 05:53:28 03/09/20 24 03/10/2024 CBC (INCL UDES DIFF/ PLT) absolute eosinophils 31 cells /uL 15-500 normal Not Available [facility] [place] [facility] [address], [place], [address], 03/10/2024 05:53:28 03/09/20 24 03/10/2024 CBC (INCL UDES DIFF/ PLT) absolute basophils 18 cells /uL 0-200 normal Not Available [facility] [place] [facility] [address], [place], [address], 03/10/2024 05:53:28 03/09/20 24 03/10/2024 CBC (INCL UDES DIFF/ PLT) neutrophils 53.2 % normal Not Available [facility] [place] [facility] [address], [place], [address], 03/10/2024 05:53:28 03/09/20 24 03/10/2024 CBC (INCL UDES DIFF/ PLT) lymphocytes 40.0 % normal Not Available [facility] [place] [facility] [address], [place], [address], 03/10/2024 05:53:28 03/09/20 24 03/10/2024 CBC (INCL UDES DIFF/ PLT) monocytes 6.0 % normal Not Available [facility] [place] [facility] [address], [place], [address], 03/10/2024 05:53:28 03/09/20 24 03/10/2024 CBC (INCL UDES DIFF/ PLT) eosinophils 0.5 % normal Not Available [facility] [place] [facility] [address], [place], [address], 03/10/2024 05:53:28 03/09/20 24 03/10/2024 CBC (INCL UDES DIFF/ PLT) basophils 0.3 % normal Not Available [facility] [place] [facility] [address] [facility], [place], [address], 03/10/2024 05:53:28 03/09/20 24 03/10/2024 VITAM IN D,25- OH,TO PAUL,I A vitamin D,25-oh,tota l,ia 19 NG/mL 30-100 low Vitam in D Statu s 25-OH Vitam in D: Defic iency : <20 ng/mL Insuf ficie ncy: 20 - 29 ng/mL Optim al: > or = 30 ng/mL For 25-OH Vitam in D testi ng on patie nts on D2-castano pplem entat ion and patie nts for whom quant itati on of D2 and D3 fract ions is requi red, the [facility] e[facility](TM ) 25-OH VIT D, (D2,D 3), LC/MS /MS is recom jessica d: order code 94765 (charanjit ents >2yrs ). See Note 1 Note 1 For addit ional infor ricki akins refer to http: //brunilda garnica.Tim stDia gnost ics.c om/fa q/FAQ 199 (This link is being provi ded for infor toño del rosario/ la vicente purpo ses only. ) Not Available [facility] [place] [facility] [address] [facility], [place], [address], 03/10/2024 10:30:04 01/02/20 25 01/03/2025 CBC WITH DIFFE RENTI AL/PL ATELE T WBC 6.6 x10e3 /uL 3.4-10 .8 normal Not Available [facility] [address] [facility], [place], [address], 01/03/2025 08:12:38 01/02/20 25 01/03/2025 CBC WITH DIFFE RENTI AL/PL ATELE T RBC 4.40 x10e6 /uL 3.77-5 .28 normal Not Available [facility] [address] [place], [address], 01/03/2025 08:12:38 01/02/20 25 01/03/2025 CBC WITH DIFFE RENTI AL/PL ATELE T hemoglobin 13.7 g/dL 11.1-1 5.9 normal Not Available [facility] [address] [place], [address], 01/03/2025 08:12:38 01/02/2001/03/2025 CBC WITH DIFFE RENTI AL/PL ATELE T hematocrit 41.1 % 34.0-4 6.6 normal Not Available [facility] [address] [place], [address], 01/03/2025 08:12:38 01/02/20 25 01/03/2025 CBC WITH DIFFE RENTI AL/PL ATELE T MCV 93 fL 79-97 normal Not Available [facility] [address] [place], [address], 01/03/2025 08:12:38 01/02/20 25 01/03/2025 CBC WITH DIFFE RENTI AL/PL ATELE T MCH 31.1 pg 26.6-3 3.0 normal Not Available [facility] [address] [place], [address], 01/03/2025 08:12:38 01/02/20 25 01/03/2025 CBC WITH DIFFE RENTI AL/PL ATELE T MCHC 33.3 g/dL 31.5-3 5.7 normal Not Available [facility] [address] [place], [address], 01/03/2025 08:12:38 02/12/01/03/2025 CBC WITH DIFFE RENTI AL/PL ATELE T RDW 12.4 % 11.7-1 5.4 Not Available [facility] [address] [facility], [place], [address], 01/03/2025 08:12:38 01/02/20 25 01/03/2025 CBC WITH DIFFE RENTI AL/PL ATELE T platelets 158 x10e3 /uL 150-45 0 normal Not Available [facility] [address] [facility], [place], [address], 01/03/2025 08:12:38 01/02/2001/03/2025 CBC WITH DIFFE RENTI AL/PL ATELE T neutrophils 50 % not estab. normal Not Available [facility] [address] [facility], [place], [address], 01/03/2025 08:12:38 01/02/20 25 01/03/2025 CBC WITH DIFFE RENTI AL/PL ATELE T lymphs 44 % not estab. normal Not Available [facility] [address] [place], [address], 01/03/2025 08:12:38 01/02/20 25 01/03/2025 CBC WITH DIFFE RENTI AL/PL ATELE T monocytes 5 % not estab. normal Not Available [facility] [address] [facility], [place], [address], 01/03/2025 08:12:38 01/02/20 25 01/03/2025 CBC WITH DIFFE RENTI AL/PL ATELE T eos 1 % not estab. normal Not Available [facility] [address] [facility], [place], [address], 01/03/2025 08:12:38 01/02/20 25 01/03/2025 CBC WITH DIFFE RENTI AL/PL ATELE T basos 0 % not estab. normal Not Available [facility] [address] [facility], [place], [address], 01/03/2025 08:12:38 01/02/20 25 01/03/2025 CBC WITH DIFFE RENTI AL/PL ATELE T immature cells SCHOOL BASED THERAPIST Not Available [facility] [address] [facility], [place], [address], 01/03/2025 08:12:38 01/02/20 25 01/03/2025 CBC WITH DIFFE RENTI AL/PL ATELE T neutrophils (absolute) 3.3 x10e3 /uL 1.4-7. 0 normal Not Available [facility] [address] [facility], [place], [address], 01/03/2025 08:12:38 01/02/20 25 01/03/2025 CBC WITH DIFFE RENTI AL/PL ATELE T lymphs (absolute) 2.9 x10e3 /uL 0.7-3. 1 normal Not Available [facility] [address] [place], [address], 01/03/2025 08:12:38 01/02/20 25 01/03/2025 CBC WITH DIFFE RENTI AL/PL ATELE T monocytes(ab solute) 0.3 x10e3 /uL 0.1-0. 9 normal Not Available [facility] [address] [place], [address], 01/03/2025 08:12:38 01/02/20 25 01/03/2025 CBC WITH DIFFE RENTI AL/PL ATELE T eos (absolute) 0.0 x10e3 /uL 0.0-0. 4 normal Not Available [facility] [address] [place], [address], 01/03/2025 08:12:38 01/02/20 25 01/03/2025 CBC WITH DIFFE RENTI AL/PL ATELE T baso (absolute) 0.0 x10e3 /uL 0.0-0. 2 normal Not Available [facility] [address] [facility], [place], [address], 01/03/2025 08:12:38 01/02/20 25 01/03/2025 CBC WITH DIFFE RENTI AL/PL ATELE T immature granulocytes 0 % not estab. Not Available [facility] [address] [facility], [place], [address], 01/03/2025 08:12:38 01/02/20 25 01/03/2025 CBC WITH DIFFE RENTI AL/PL ATELE T immature grans (abs) 0.0 x10e3 /uL 0.0-0. 1 Not Available [facility] [address] [facility], [place], [address], 01/03/2025 08:12:38 01/02/20 25 01/03/2025 CBC WITH DIFFE RENTI AL/PL ATELE T NRBC SCHO[employer] BASED THERAPIST Not Available [facility] [address] [facility], [place], [address], 01/03/2025 08:12:38 01/02/20 25 01/03/2025 CBC WITH DIFFE RENTI AL/PL ATELE T hematology comments: SCHOOL BASED THERAPIST Not Available [facility] [address] [place], [address], 01/03/2025 08:12:38 01/02/20 25 01/03/2025 COMP. METAB OLIC PANEL (14) glucose 91 mg/dL 70-99 normal Not Available [facility] [address] [place], [address], 01/03/2025 08:12:39 01/02/20 25 01/03/2025 COMP. METAB OLIC PANEL (14) BUN 8 mg/dL 6-24 normal Not Available [facility] [address] [facility] [place], [address], 01/03/2025 08:12:39 01/02/20 25 01/03/2025 COMP. METAB OLIC PANEL (14) creatinine 0.68 mg/dL 0.57-1 .00 normal Not Available [facility] [address] [facility] [place], [address], 01/03/2025 08:12:39 01/02/20 25 01/03/2025 COMP. METAB OLIC PANEL (14) eGFR 111 mL/mi n/1.7 3 >59 normal Not Available [facility] [address] [facility] [place], [address], 01/03/2025 08:12:39 01/02/20 25 01/03/2025 COMP. METAB OLIC PANEL (14) BUN/creatini ne ratio 12 9-23 normal Not Available [facility] [address] [facility] [place], [address], 01/03/2025 08:12:39 01/02/20 25 01/03/2025 COMP. METAB OLIC PANEL (14) sodium 138 mmol/ L 134-14 4 normal Not Available [facility] [address] [facility] [place], [address], 01/03/2025 08:12:39 01/02/20 25 01/03/2025 COMP. METAB OLIC PANEL (14) potassium 4.0 mmol/ L 3.5-5. 2 normal Not Available [facility] [address] [facility] [place], [address], 01/03/2025 08:12:39 01/02/20 25 01/03/2025 COMP. METAB OLIC PANEL (14) chloride 102 mmol/ L 96-106 normal Not Available [facility] [address] [facility] [place], [address], 01/03/2025 08:12:39 01/02/20 25 01/03/2025 COMP. METAB OLIC PANEL (14) carbon dioxide, total 21 mmol/ L 20-29 normal Not Available [facility] [address] [facility] [place], [address], 01/03/2025 08:12:39 01/02/20 25 01/03/2025 COMP. METAB OLIC PANEL (14) calcium 9.1 mg/dL 8.7-10 .2 normal Not Available [facility] [address] [place], [address], 01/03/2025 08:12:39 01/02/20 25 01/03/2025 COMP. METAB OLIC PANEL (14) protein, total 7.3 g/dL 6.0-8. 5 normal Not Available [facility] [address] [facility] [place], [address], 01/03/2025 08:12:39 01/02/20 25 01/03/2025 COMP. METAB OLIC PANEL (14) albumin 4.5 g/dL 3.9-4. 9 normal Not Available [facility] [address] [facility] [place], [address], 01/03/2025 08:12:39 01/02/20 25 01/03/2025 COMP. METAB OLIC PANEL (14) globulin, total 2.8 g/dL 1.5-4. 5 Not Available [facility] [address] [facility] [place], [address], 01/03/2025 08:12:39 01/02/20 25 01/03/2025 COMP. METAB OLIC PANEL (14) bilirubin, total 0.2 mg/dL 0.0-1. 2 normal Not Available [facility] [address] [facility] [place], [address], 01/03/2025 08:12:39 01/02/20 25 01/03/2025 COMP. METAB OLIC PANEL (14) alkaline phosphatase 91 IU/L 44-121 normal Not Available [facility] [address] [facility], [place], [address], 01/03/2025 08:12:39 01/02/20 25 01/03/2025 COMP. METAB OLIC PANEL (14) AST (SGOT) 14 IU/L 0-40 normal Not Available [facility] [address] [facility], [place], [address], 01/03/2025 08:12:39 01/02/20 25 01/03/2025 COMP. METAB OLIC PANEL (14) ALT (SGPT) 9 IU/L 0-32 normal Not Available [facility] [address] [facility], [place], [address], 01/03/2025 08:12:39 01/02/20 25 01/03/2025 VITAM IN D, 25-HY DROXY vitamin D, 25-hydroxy 17.8 NG/mL 30.0-1 00.0 below low normal Vitam in D defic iency has been defin ed by the Insti tute of Medic ine and an Endoc rine Socie ty pract ice guide line as a level of serum 25-OH vitam in D less than 20 ng/mL (1,2) . The Endoc rine Socie ty went on to furth er defin e vitam in D insuf ficie ncy as a level betwe en 21 and 29 ng/mL (2). 1. IOM (Inst itute of Medic ine). 2010. Dieta ry refer ence yanely es for calci um and D. Eve hearn [place]: The Natio nal [facility] . 2. Luz Elena preciado MF, Binyvette ey [place], Jaci off-F errar i KNIGHT, et al. Evalu ation , treat ment, and preve ntion of vitam in D defic iency : an Endoc rine Socie ty clini micalea pract ice guide line. JCEM. 2010; 96(7) :1911 -30. Not Available [facility]) [address] [facility], [place], [address], 01/03/2025 08:12:39 01/02/20 25 01/03/2025 TSH REFLE X TO T4F TSH 0.717 uIU/m L 0.450- 4.500 normal Not Available [facility] ([facility]) [address] [facility], [place], [address], 01/03/2025 08:12:40 03/09/20 24 03/08/2024 MAMMO , scree milagros, bilat eral No observ ation record ed. [address] (Scheduling) [address], [place], [address], 03/15/2024 09:24:22 03/20/20 24 03/16/2024 MAMMO , diagn ostic , digit al, unila teral No observ ation record ed. [address] (Scheduling) [address], [place], [address], 03/20/2024 13:14:56 03/20/20 24 03/16/2024 , saturnino t, unila teral No observ ation record ed. [facility] [address], [place], [address], 03/20/2024 13:11:18 04/04/20 24 03/28/2024 biops y, saturnino t (PROC ) No observ ation record ed. [facility] [address], [place], [address], 04/04/2024 10:29:47 Result Notes None recorded. Problems Name Problem SNOMED Code Status Onset Date Resolution Date Notes Provider Name and Address Organization Details Recorded Time Seasonal allergy 729045721 Active 2022 HAI CORCORAN [address] [place], [address] , [employer] 3 13:36:18 Allergic rhinitis 82571344 Active 2023 Problem Code: J30.9; Problem Code Type: ICD-10; Yamilka Mcnair, [employer] [address] [place], [address] , [employer] 4 11:53:26 Helicoba cter blood test finding 205260223 Completed 201809/28/2022 Problem Code: B96.81; Problem Code Type: ICD-10; EMERALD MYNEAR null, [employer] 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 2 15:54:05 Vegan's anemia 109204574 Completed 201710/17/2019 Problem Code: D51.3; Problem Code Type: ICD-10; Not Available [facility] 2 21:51:18 Non-toxi c uninodul ar goiter 755936957 Completed 202009/28/2022 Problem Code: E04.1; Problem Code Type: ICD-10; EMERALD MENSAHNEAR null, [employer] 2 15:54:04 Vitamin B deficien cy 55954280 Completed 201809/28/2022 Problem Code: E53.9; Problem Code Type: ICD-10; EMERALD MORENOR null, [employer] 2 15:54:05 Vitamin D deficien cy 06426017 Completed 201610/17/2019 Problem Code: E55.9; Problem Code Type: ICD-10; EMERALD MORENOR null, [employer] 2 15:54:05 Vitamin D deficien cy 00293628 Completed 201809/28/2022 Problem Code: E55.9; Problem Code Type: ICD-10; EMERALD MORENOR null, [employer] 2 15:54:05 Mixed hyperlip idemia 021781920 Active 2017 Problem Code: E78.2; Problem Code Type: ICD-10; Not Available [facility] 2 21:51:19 Tobacco dependen ce caused by cigarett es 52662743749 018453 Completed 201909/28/2022 Problem Code: F17.210; Problem Code Type: ICD-10; EMERALD MORENOR null, [employer] 2 15:54:04 Nicotine dependen ce 37680001 Completed 201809/28/2022 Problem Code: F17.200; Problem Code Type: ICD-10; EMERALD MORENOR null, [employer] 2 15:54:05 Generali zed anxiety disorder 17034563 Completed 201709/28/2022 Problem Code: F41.1; Problem Code Type: ICD-10; EMERALD MORENOR null, [employer] 2 15:54:04 Generali zed anxiety disorder 61652095 Completed 201710/17/2019 Problem Code: F41.1; Problem Code Type: ICD-10; EMERALD MENSAHNEAR null, [employer] 2 15:54:04 Restless legs 67664376 Completed 201809/28/2022 Problem Code: G25.81; Problem Code Type: ICD-10; EMERALD amado, [employer] 15:54:05 Tension- type headache 457691970 Completed 201611/11/2017 Problem Code: G44.209; Problem Code Type: ICD-10; Not Available [facility] 2 21:51:20 Nerve root disorder 34085045 Completed 201809/28/2022 Problem Code: G54.2; Problem Code Type: ICD-10; EMERALD MENSAHMONICAHenny amado, [employer] 2 15:54:05 Divertic ulum of Eustachi an tube 396708179 Completed 201701/30/2018 Problem Code: H69.80; Problem Code Type: ICD-10; Not Available [facility] 2 21:51:20 Divertic ulum of Eustachi an tube 897528747 Completed 201705/22/2018 Problem Code: H69.80; Problem Code Type: ICD-10; Not Available [facility] 2 21:51:20 Bilatera l earache 093781517 Completed 201704/06/2018 Not Available [facility] 2 21:51:20 Acute frontal sinusiti s 10517812 Completed 201809/28/2022 Problem Code: J01.10; Problem Code Type: ICD-10; EMERALD MENSAHMONICAHenny ingris, [employer] 2 15:54:05 Acute sinusiti s 74668239 Completed 202009/28/2022 Problem Code: J01.90; Problem Code Type: ICD-10; Lillie Ivory APRN [address] [place], [address] , [employer] 5 19:43:05 Acute sinusiti s 35020312 Completed 201905/12/2020 Problem Code: J01.90; Problem Code Type: ICD-10; Lillie Ivory APRN [address] [place], [address] , [employer] 19:43:05 Acute sinusiti s 32047646 Completed 201607/26/2017 Problem Code: J01.90; Problem Code Type: ICD-10; Lillie Ivory APRN [address] [facility], [place], [address] , [employer] 5 19:43:05 Acute sinusiti s 33386639 Completed 202011/06/2021 Problem Code: J01.90; Problem Code Type: ICD-10; Lillie Ivory APRN [address] [facility], [place], [address] , [employer] 19:43:05 Acute sinusiti s 57687634 Completed 201810/17/2019 Problem Code: J01.90; Problem Code Type: ICD-10; Lillie Ivory APRN [address] [facility], [place], [address] , [employer] 5 19:43:05 Acute sinusiti s 60840870 Completed 202002/23/2022 Problem Code: J01.90; Problem Code Type: ICD-10; Lillie Ivory APRN [address] [facility], [place], [address] , [employer] 5 19:43:05 Acute pharyngi tis 061182858 Completed 201602/07/2017 Problem Code: J02.8; Problem Code Type: ICD-10; Not Available [facility] 21:51:21 Acute pharyngi tis 765739923 Completed 201701/30/2018 Problem Code: J02.8; Problem Code Type: ICD-10; Not Available [facility] 21:51:21 Acute pharyngi tis 584121186 Completed 201602/20/2017 Problem Code: J02.8; Problem Code Type: ICD-10; Not Available [facility] 21:51:21 Acute laryngop haryngit is 20342561 Completed 201704/24/2018 Problem Code: J06.0; Problem Code Type: ICD-10; Not Available [facility] 2 21:51:22 Influenz a 2309262 Completed 201712/15/2017 Problem Code: J10.1; Problem Code Type: ICD-10; Not Available [facility] 2 21:51:22 Influenz a 3080573 Completed 201602/20/2017 Problem Code: J10.1; Problem Code Type: ICD-10; Not Available [facility] 2 21:51:22 Allergic rhinitis 32464459 Completed 201909/28/2022 Problem Code: J30.9; Problem Code Type: ICD-10; Yamilka Mcnair, [employer] [address] [place] [address], [address] , [employer] 4 11:53:26 Acute gingivit is 36590865 Completed 201809/28/2022 Problem Code: K05.01; Problem Code Type: ICD-10; EMERALD MENSAHNEAR null, [employer] 2 15:54:05 Gastroes ophageal reflux disease without esophagi tis 665933913 Completed 201909/28/2022 EMERALD MENSAHNEAR null, [employer] 2 15:54:05 Cellulit is of thumb 940854427 Completed 201706/12/2018 Not Available [facility] 2 21:51:23 Cellulit is of left lower limb 20436533488 585478 Completed 201610/17/2019 Problem Code: L03.116; Problem Code Type: ICD-10; Not Available [facility] 2 21:51:23 Acute lymphade nitis of face, head and neck 908750141 Completed 202009/28/2022 Problem Code: L04.0; Problem Code Type: ICD-10; EMERALD MORENOR null, [employer] 2 15:54:04 Constipa tion 63504565 Completed 201610/17/2019 Not Available [facility] 2 21:51:23 Cellulit is of thumb 761952341 Completed 201709/05/2018 Not Available [facility] 2 21:51:23 Cellulit is of thumb 294345309 Completed 201707/25/2018 Not Available [facility] 2 21:51:24 Follicul ar cysts of skin and subcutan eous tissue 478488899 Completed 201812/10/2019 Problem Code: L72.9; Problem Code Type: ICD-10; Not Available [facility] 2 21:51:24 Pain of left shoulder joint 12765953878 040765 Completed 201709/05/2018 Problem Code: M25.512; Problem Code Type: ICD-10; Not Available [facility] 2 21:51:24 Cervical disc disorder with radiculo candi 884233294 Completed 202009/28/2022 Problem Code: M50.13; Problem Code Type: ICD-10; EMERALD MYNEAR null, [employer] 2 15:54:04 Neck pain 72679553 Completed 202004/30/2021 EMERALD MYNEAR null, [employer] 2 15:54:05 Neck pain 89532147 Completed 201604/10/2017 EMERALD MYNEAR null, [employer] 2 15:54:05 Neck pain 89164628 Completed 201909/28/2022 EMERALD MYNEAR null, [employer] 2 15:54:05 Low back pain 097304573 Completed 202004/30/2021 Problem Code: M54.5; Problem Code Type: ICD-10; EMERALD MYNEAR null, [employer] 2 15:54:05 Low back pain 127750162 Completed 201909/28/2022 Problem Code: M54.5; Problem Code Type: ICD-10; EMERALD MORENOR null, [employer] 15:54:05 Bursitis of elbow 847313525 Completed 201709/05/2018 Problem Code: M70.32; Problem Code Type: ICD-10; Not Available [facility] 21:51:26 Pain in right lower limb 197970314 Completed 201609/28/2022 EMERALD MENSAHNEAR null, [employer] 15:54:05 Pain in right foot 73049982410 9107 Completed 202109/28/2022 Problem Code: M79.671; Problem Code Type: ICD-10; EMERALD RODRICKNEAR null, [employer] 15:54:05 Cough 36674131 Completed 201604/17/2017 Problem Code: R05; Problem Code Type: ICD-10; EMERALD MENSAHNEAR null, [employer] 15:54:05 Cough 72583020 Completed 202109/28/2022 Problem Code: R05; Problem Code Type: ICD-10; EMERALD MENSAHNEAR null, [employer] 15:54:05 Wheezing 65060686 Completed 202103/22/2022 Problem Code: R06.2; Problem Code Type: ICD-10; EMERALD MENSAHNEAR null, [employer] 15:54:05 Cough 56327905 Completed 201811/22/2019 Problem Code: R05; Problem Code Type: ICD-10; EMERALD RODRICKNEAR null, [employer] 15:54:05 Posterio r rhinorrh ea 76159901 Completed 201610/17/2019 Problem Code: R09.82; Problem Code Type: ICD-10; Not Available [facility] 2 21:51:28 Cough 34650189 Completed 201905/12/2020 Problem Code: R05; Problem Code Type: ICD-10; EMERALD RODRICKAUSTIN amado, [employer] 2 15:54:05 Chest pain on breathin g 211402657 Completed 201604/17/2017 Problem Code: R07.1; Problem Code Type: ICD-10; Not Available [facility] 2 21:51:28 Right lower quadrant pain 607459204 Completed 201701/24/2018 Problem Code: R10.31; Problem Code Type: ICD-10; Not Available [facility] 2 21:51:29 Dysphagi a 92521689 Completed 201911/11/2020 Not Available [facility] 2 21:51:29 Syringom yelia 441057677 Completed 201610/17/2019 Problem Code: G60.8; Problem Code Type: ICD-10; Not Available [facility] 2 21:51:29 Diarrhea 05058955 Completed 201603/25/2017 Problem Code: R19.7; Problem Code Type: ICD-10; Not Available [facility] 2 21:51:30 Chronic fatigue syndrome 24397324 Completed 202009/28/2022 Problem Code: R53.82; Problem Code Type: ICD-10; EMERALD RODRICKMONICAR null, [employer] 2 15:54:05 Chronic fatigue syndrome 53934558 Completed 201911/11/2020 Problem Code: R53.82; Problem Code Type: ICD-10; EMERALD RODRICKNEAR null, [employer] 2 15:54:05 Abnormal weight gain 415194165 Completed 201809/28/2022 Problem Code: R63.5; Problem Code Type: ICD-10; EMERALD RODRICKMONICAR null, [employer] 2 15:54:04 Finding of general energy 209142408 Completed 201809/28/2022 Problem Code: R53.83; Problem Code Type: ICD-10; EMERALD amado, [employer] 2 15:54:05 Bilatera l earache 897788999 Completed 201612/22/2016 Not Available [facility] 2 21:51:31 Closed fracture of foot 531945748 Completed 202109/28/2022 EMERALD LOUIS null, [employer] 2 15:54:05 Allergic sensitiz ation 149723931 Completed 201809/28/2022 EMERALD LOUIS null, [employer] 2 15:54:05 General examinat ion of patient Completed 202105/31/2022 EMERALD amado, [employer] 2 15:54:04 Abnormal finding on evaluati on procedur e 784616682 Active 2018 Not Available [facility] 2 21:51:32 General examinat ion of patient Completed 201909/28/2022 EMERALD amado, [employer] 2 15:54:04 Acute bronchit is 21285166 Completed 201604/17/2017 Problem Code: J20.8; Problem Code Type: ICD-10; Not Available [facility] 2 21:51:34 Finding of body mass index 882687191 Completed 201809/28/2022 Problem Code: Z68.1; Problem Code Type: ICD-10; EMERALD amado, [employer] 2 15:54:05 Post-natacha gical wound care Completed 201905/02/2020 Problem Code: Z48.02; Problem Code Type: ICD-10; Not Available [facility] 2 21:51:34 Body mass index 20-24 - normal 713262831 Active 2019 Not Available [facility] 2 21:51:35 Gastro-e sophagea l reflux disease with esophagi tis 530374380 Active 2018 Problem Code: K21.0; Problem Code Type: ICD-10; Not Available [facility] 21:51:35 Cellulit is of right upper limb 87786378837 484500 Completed 201610/17/2019 Problem Code: L03.113; Problem Code Type: ICD-10; Not Available [facility] 21:51:37 Cellulit is of left upper limb 29926961492 431898 Completed 201610/17/2019 Problem Code: L03.114; Problem Code Type: ICD-10; Not Available [facility] 21:51:37 Allergic contact dermatit is 084515737 Completed 201604/10/2017 Problem Code: L23.89; Problem Code Type: ICD-10; Not Available [facility] 21:51:37 Benign neoplasm of soft tissues of lower limb 13646064 Completed 201710/17/2019 Problem Code: 215.3; Problem Code Type: ICD-9; Not Available [facility] 21:51:38 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 63877537 Completed 201711/06/2021 Problem Code: 281.1; Problem Code Type: ICD-9; Not Available [facility] 21:51:38 Psychoge anusha headache 15017167 Completed 201611/11/2017 Problem Code: 307.81; Problem Code Type: ICD-9; Not Available [facility] 21:51:39 Dysfunct ion of eustachi an tube 64350314 Completed 201701/30/2018 Problem Code: 381.81; Problem Code Type: ICD-9; Not Available [facility] 2 21:51:39 Heredita ry sensory neuropat hy 85356861 Completed 201611/06/2021 Problem Code: 356.2; Problem Code Type: ICD-9; [facility] Available [facility] 2 21:51:40 Dysfunct ion of eustachi an tube 41131015 Completed 201705/22/2018 Problem Code: 381.81; Problem Code Type: ICD-9; Not Available [facility] 21:51:40 Otogenic otalgia 00735303 Completed 201612/22/2016 Problem Code: 388.71; Problem Code Type: ICD-9; Not Available [facility] 2 21:51:40 Wheezing 92108803 Completed 201909/28/2022 Problem Code: R06.2; Problem Code Type: ICD-10; EMERALD amado, [employer] 15:54:05 Epigastr ic pain 70387498 Completed 201707/25/2018 Problem Code: R10.13; Problem Code Type: ICD-10; Not Available [facility] 21:51:42 Cellulit is and abscess of upper arm 558470028 Completed 201610/17/2019 Problem Code: 682.3; Problem Code Type: ICD-9; Not Available [facility] 21:51:42 Cellulit is and abscess of foot excludin g toe Completed 201610/17/2019 Problem Code: 682.7; Problem Code Type: ICD-9; Not Available [facility] 21:51:42 Shoulder joint pain 770425986 Completed 201709/05/2018 Problem Code: 719.41; Problem Code Type: ICD-9; Not Available [facility] 2 21:51:42 Enthesop athy of elbow region 98884487 Completed 201709/05/2018 Problem Code: 726.39; Problem Code Type: ICD-9; Not Available [facility] 2 21:51:43 Delayed healing of skin donor site 089156899 Completed 201909/28/2022 Problem Code: R23.8; Problem Code Type: ICD-10; EMERALD amado [employer] 15:54:05 Precordi al pain 51743523 Completed 201604/17/2017 Problem Code: 786.51; Problem Code Type: ICD-9; Not Available [facility] 21:51:44 Influenz a with non-resp iratory manifest ation 23200366 Completed 201712/15/2017 Problem Code: 487.8; Problem Code Type: ICD-9; Not Available [facility] 21:51:45 Slow transit constipa tion 59324631 Completed 201611/06/2021 Problem Code: 564.01; Problem Code Type: ICD-9; Not Available [facility] 21:51:45 Pulp abscess of finger 45976011 Completed 201706/12/2018 Problem Code: 681.01; Problem Code Type: ICD-9; Not Available [facility] 21:51:46 Multiple injuries 504289541 Completed 201609/28/2022 Problem Code: T07; Problem Code Type: ICD-10; EMERALD RODRICKAUSTIN amado, [employer] 15:54:05 Finding of body mass index 780268590 Completed 201811/11/2020 Problem Code: Z68.1; Problem Code Type: ICD-10; EMERALD RODRICKAUSTIN null, [employer] 15:54:05 Body mass index 20-24 - normal 057174585 Completed 202011/06/2021 Not Available [facility] 21:51:49 Otogenic otalgia 82043418 Completed 201704/06/2018 Problem Code: 388.71; Problem Code Type: ICD-9; Not Available [facility] 2 21:51:50 Acute upper respirat ory infectio n of multiple sites Completed 201704/24/2018 Problem Code: 465.8; Problem Code Type: ICD-9; Not Available [facility] 2 21:51:50 Influenz a with respirat ory manifest ation other than pneumoni a Completed 201602/20/2017 Problem Code: 487.1; Problem Code Type: ICD-9; Not Available [facility] 21:51:50 Contact dermatit is 27753899 Completed 201604/10/2017 Problem Code: 692.9; Problem Code Type: ICD-9; Not Available [facility] 21:51:50 Pain in limb 16912876 Completed 201609/28/2022 Problem Code: 729.5; Problem Code Type: ICD-9; EMERALD LOUIS [place], [employer] 15:54:05 Nonvenom ous insect bite of multiple sites 362559610 Completed 201609/28/2022 Problem Code: 919.4; Problem Code Type: ICD-9; EMERALD LOUIS null, [employer]. 15:54:05 Notes:*Problem Name: Onychia and paronychia of finger *Problem Status: Acute *Comments: *Problem Code: 681.02 *Problem Code Type: ICD-9 *Note Date: 05/26/2018 *Problem Name: Onychia and paronychia of finger *Problem Status: Acute *Comments: *Problem Code: 681.02 *Problem Code Type: ICD-9 *Note Date: 07/07/2018 Problem Notes None recorded. Procedures Surgical History Date Name Laterality Status Provider Name and Address Organization Details Recorded Time 03/08/20 24 Most Recent Mammogram completed EMERALDENRIKE LOUIS [employer] 03/09/2024 12:46:47 09/09/20 17 hysterectomy completed Not Available [facility] 022 22:56:41 12/08/19 17 dilation and curettage completed Not Available [facility] 07/27/2022 22:56:41 cervical arthrodesis completed JASON CORDOVA [place] 06/09/2023 13:30:07 Imaging Results None recorded. Procedure Notes None recorded. Medical Equipment None Reported. Allergies Allergen ID Allergen Name Allergen Category Reaction Reaction Severity Criticality Documentation Date Start Date Code Code System Note Provider Name and Address Organization Details Recorded Time 19256 Keflex medicatio n Not available Not available Not available 07/27/202241364 7 RxNorm Not Available [facility] 2 22:54:52 65950 Paxil medicatio n Not available Not available Not available 09/28/2022 74771 8 RxNorm EMERALD RODRICKNEAR null, [employer] 2 15:50:19 14360 Klonopin medicatio n Not available Not available Not available 09/28/202223587 5 RxNorm EMERALD MYNEAR null, [employer] 2 15:50:30 90271 Augmentin medicatio n Not available Not available Not available 06/09/2023 24115 2 RxNorm JASON CORDOVA null, [employer] 3 13:25:56 Medications Name Sig Start Date Stop Date Status Note LastModified by Organization Details LastModified Time amoxicillin 500 mg capsule Take 1 capsule by mouth every 8 hours for 7 days. 09/28 completed Not Available Not Available Not Available Miralax 17 gram/dose oral powder 1 capful in 8 oz beverage q day 11/08 completed Not Available Not Available Not Available atorvastati n 40 mg tablet Take 1 tablet(s) by mouth at bedtime. 12/28 completed Not Available Not Available Not Available nystatin 100,000 unit/mL oral suspension take 5 millilite rs (500,000 unit) by oral route 4 times per day 06/02 completed Not Available Not Available Not Available atorvastati n 20 mg tablet 1 po qhs 07/26 completed Not Available Not Available Not Available clindamycin HCl 300 mg capsule Take 1 capsule 3 times a day by oral route for 7 days. 06/09 completed Not Available Not Available Not Available azithromyci n 250 mg tablet take 2 tablets (500 mg) by oral route once daily for 1 day then 1 tablet (250 mg) by oral route once daily for 4 days 11/06 completed Not Available Not Available Not Available ibuprofen 800 mg tablet take 1 tablet (800 mg) by oral route 3 times per day with food prn pain 11/06 completed Not Available Not Available Not Available Keflex 500 mg capsule 1 pill 4 times aday x 10days 12/08 completed Not Available Not Available Not Available meloxicam 15 mg tablet once daily 01/24 completed Not Available Not Available Not Available prednisone 20 mg tablet take 1 tablet (20 mg) by oral route 3 times per day x3 days 03/22 completed Not Available Not Available Not Available prednisone 5 mg tablet 7pills po today and decrease by one q day 02/16 completed Not Available Not Available Not Available methylpredn isolone 4 mg tablet as directed 05/12 completed Not Available Not Available Not Available dextrometho rphan-guaif enesin 10 mg-100 mg/5 mL oral syrup Take 1 teaspoon by mouth q4h prn for cough 04/24 completed Not Available Not Available Not Available sulfamethox azole 800 mg-trimetho prim 160 mg tablet Take 1 tablet(s) by mouth q12h for 10 days 09/28 completed Not Available Not Available Not Available omeprazole 40 mg capsule,del ayed release TAKE 1 CAPSULE BY MOUTH ONCE DAILY BEFORE A MEAL 01/02 completed Not Available Not Available Not Available triamcinolo ne acetonide 0.1 % topical cream apply a thin layer to the affected area(s) by topical route 2 times per day for poison jacinto 09/28 completed Not Available Not Available Not Available Zantac 150 mg tablet Take 1 tablet(s) by mouth at bedtime 09/23 completed Not Available Not Available Not Available amoxicillin 875 mg tablet Take 1 tablet every 12 hours by oral route as directed for 10 days. 01/29 completed Not Available Not Available Not Available [employer] a 150 mg/mL intramuscul ar suspension Inject 1ml IM every 3 months 07/07 completed Not Available Not Available Not Available benzonatate 100 mg capsule take 1 capsule (100 mg) by oral route 3 times per day for cough 02/23 completed Not Available Not Available Not Available triamcinolo ne acetonide 40 mg/mL suspension for injection Take 1 mL by injection route. 03/09 completed Not Available Not Available Not Available etodolac 400 mg tablet one po bid 09/05 completed Not Available Not Available Not Available pravastatin 20 mg tablet TAKE 1 TABLET BY MOUTH AT BEDTIME 09/28 completed Not Available Not Available Not Available mupirocin 2 % topical ointment 09/28 completed Not Available Not Available Not Available Levaquin 500 mg tablet Take 1 tablet(s) by mouth daily for 10 days 02/16 completed Not Available Not Available Not Available lorazepam 1 mg tablet 1 po bid 10/17 completed Not Available Not Available Not Available Lomotil 2.5 mg-0.025 mg tablet Take 1 tablet(s) by mouth qid prn for diarrhea 01/24 completed Not Available Not Available Not Available Vitamin D2 1,250 mcg (50,000 unit) capsule Take one cap by oral route once weekly for 12 weeks active Not Available Not Available No t Available Naprosyn 500 mg tablet Take 1 tablet(s) by mouth bid 04/27 completed Not Available Not Available Not Available bromphenira mine-pseudo ephedrine-D M 2 mg-30 mg-10 mg/5 mL oral syrup take 10 millilite rs by oral route every 4-6 hours PRN cough 09/28 completed Not Available Not Available Not Available cefdinir 300 mg capsule take 1 capsule (300 mg) by oral route every 12 hours x 10 days 11/06 completed Not Available Not Available Not Available fluticasone propionate 50 mcg/actuati on nasal spray,suspe nsion 1 SPRAY IN EACH NOSTRIL TWICE DAILY active Not Available Not Available No t Available loratadine 10 mg tablet take 1 tablet (10 mg) by oral route once daily 06/09 completed Not Available Not Available Not Available amoxicillin 875 mg-potassiu m clavulanate 125 mg tablet take 1 tablet by oral route every 12 hours x 10 days with food 06/09 completed Not Available Not Available Not Available Vitamin B-12 1,000 mcg tablet 2500mcg subligual daily 10/17 completed Not Available Not Available Not Available Ventolin HFA 90 mcg/actuati on aerosol inhaler inhale 1 - 2 puffs (90 - 180 mcg) by inhalatio n route every 4 hours as needed 06/09 completed Not Available Not Available Not Available guaifenesin 400 mg tablet take 1 tablet (400 mg) by oral route every 4 hours as needed 10/17 completed Not Available Not Available Not Available cyclobenzap rine 5 mg tablet take 1 tablet (5 mg) by oral route q HS prn neck spasm 11/06 completed Not Available Not Available Not Available rosuvastati n 10 mg tablet Take 1 tablet every day by oral route, for cholester ol. 01/02 completed Not Available Not Available Not Available cholecalcif marleny (vitamin D3) 1,250 mcg (50,000 unit) capsule Take 1 tablet twice weekly 04/07 completed Not Available Not Available Not Available Allergy Relief (cetirizine ) 10 mg tablet Take 1 tablet(s) by mouth daily as needed for allergies active Not Available Not Available No t Available Allergy Relief (fexofenadi ne) 180 mg tablet Take 1 tablet every day by oral route. 01/02 completed Not Available Not Available Not Available Vitals Date Recorded Body height Body mass index (BMI) Body weight Body temperature Heart rate Oxygen saturation Oxygen saturation in Arterial blood by Pulse oximetry Systolic And Diastolic Provider Name and Address Organization Details Last Updated DateTime 5 157.48 cm 19 kg/m2 75898.6 1 g 97.8 [degF] 78 /min 98 % 98 % 112/74 mm[Hg] [facility] 5 13:56:57 Date Recorded Body height Body mass index (BMI) Body weight Heart rate Oxygen saturation Oxygen saturation in Arterial blood by Pulse oximetry Body temperature Systolic And Diastolic Provider Name and Address Organization Details Last Updated DateTime 4 157.48 cm 20.7 kg/m2 08924.6 6 g 73 /min 98 % 98 % 96.3 [degF] 103/71 mm[Hg] ERICA MURILLO [employer]. 4 11:30:49 Date Recorded Body height Body mass index (BMI) Body weight Body temperature Heart rate Oxygen saturation Oxygen saturation in Arterial blood by Pulse oximetry Systolic And Diastolic Provider Name and Address Organization Details Last Updated DateTime 4 157.48 cm 20.9 kg/m2 74908.5 3 g 98.3 [degF] 79 /min 98 % 98 % 103/70 mm[Hg] EMERALD MENSAHNEAR [employer]. 4 13:42:33 Date Recorded Body height Body mass index (BMI) Body weight Body temperature Heart rate Oxygen saturation Oxygen saturation in Arterial blood by Pulse oximetry Systolic And Diastolic Provider Name and Address Organization Details Last Updated DateTime 5 157.48 cm 19.9 kg/m2 46457.1 3 g 97.8 [degF] 97 /min 98 % 98 % 123/80 mm[Hg] EMERALD MYNEAR [employer]. 5 13:19:44 Date Recorded Body height Body mass index (BMI) Body weight Body temperature Heart rate Oxygen saturation Oxygen saturation in Arterial blood by Pulse oximetry Systolic And Diastolic Provider Name and Address Organization Details Last Updated DateTime 4 157.48 cm 20.7 kg/m2 74390.3 7 g 98 [degF] 81 /min 97 % 97 % 97/63 mm[Hg] EMERALD MYNEAR [employer]. 4 12:46:19 Social History Question Answer Notes LastModified by Organizat ion Details LastModified Time Tobacco Smoking Status Current Every Day Smoker JASON amado [employer] 06/09/2023 13:28:17 Do You Have An Advance Directive? No Information n ot available 09/28/2022 Is Your Home Air Conditioned? Yes Information not available 09/28/2022 Are You Blind Or Do You Have Difficulty Seeing? No [email or web address] Information n ot available 06/09/2023 What Is Your Level Of Caffeine Consumption? Heavy [email or web address] Information not available 06/09/2023 Are You A Caregiver? No [email or web address] Information not available 06/09/2023 In The 14 Days Before Symptom Onset, Have You Had Close Contact With A Laboratory-confirm ed COVID-19 While That Case Was Ill? No Information n ot available 09/28/2022 In The 14 Days Before Symptom Onset, Have You Had Close Contact With A Person Who Is Under Investigation For COVID-19 While That Person Was Ill? No Information not available 09/28/2022 Have You Been To An Area Known To Be High Risk For COVID-19? No Information not available 09/28/2022 Are You Deaf Or Do You Have Serious Difficulty Hearing? No [email or web address] Information not available 06/09/2023 What Type Of Diet Are You Following? REGULAR Information n ot available 09/28/2022 Who Is Your Employer? [employer] Information not available 09/28/2022 Have There Been Any Changes To Your Family Or Social Situation? No Information no t available 06/09/2023 Are There Any Guns Present In Your Home? No Information not available 09/28/2022 Which Of Your Hands Is Dominant? Right Information n ot available 06/09/2023 Do You Have A Medical Power Of Refrigeration Lead? No Information not available 09/28/2022 What Was The Date Of Your Most Recent Tobacco Screening? 02/13/2025 Information not available 02/13/2025 What Is Your Current Pack Years? 10-19packyeanastasiia s [email or web address] Information not available 06/09/2023 What Is Your Relationship Status? Information not available 06/09/2023 Do You Use Your Seat Belt Or Car Seat Routinely? Yes Information not available 09/28/2022 Do You Have Smoke And Carbon Monoxide Detectors In Your Home? Yes Information not available 09/28/2022 At What Age Did You Start Smoking Tobacco? 19 Information not available 09/28/2022 Are You Passively Exposed To Smoke? Yes Information no t available 06/09/2023 Are There Any Smokers In Your House? Yes [email or web address] Information not available 06/09/2023 How Much Tobacco Do You Smoke? 0.5 PPD [email or web address] Information not available 06/09/2023 Do You Participate In Social Media? Yes Information not available 01/14/2024 Do You Use Sunscreen Routinely? No Information not available 09/28/2022 Has Tobacco Cessation Counseling Been Provided? Yes Information not available 01/14/2024 On What Date Was Tobacco Cessation Counseling Provided? 01/02/2025 [email or web address] Information not available 01/02/2025 How Many Years Have You Smoked Tobacco? 23 Information not available 09/28/2022 Have You Recently Traveled Abroad? No Information not available 09/28/2022 Do You Have Difficulty Walking Or Climbing Stairs? No Information not available 06/09/2023 Are You Currently In School? No Information not available 09/28/2022 Do You Have Any Dietary Restrictions? No Information not available 09/28/2022 Sex: Female Functional Status Question Answer Note LastModified by [employer] ion Details LastModified Time Do you use any illicit or recreational drugs? No Information not available 09/28/2022 Do you or have you ever used any other forms of tobacco or nicotine? Yes [email or web address] Information not available 06/09/2023 What is your level of alcohol consumption? None Information not available 09/28/2022 Do you or have you ever used smokeless tobacco? Never used smokeless tobacco [email or web address] Information not available 06/09/2023 Are you currently employed? Yes Information not available 09/28/2022 Do you have transportation difficulties? No Information not available 09/28/2022 Are you able to walk? YESWOREST [email or web address] Information not available 06/09/2023 Do you have difficulty doing errands alone? No [email or web address] Information not available 06/09/2023 Are you able to care for yourself? Yes Information n ot available 09/28/2022 Do you have difficulty dressing or bathing? No [email or web address] Information not available 06/09/2023 Do you or have you ever used e-cigarettes or vape? Current user of electronic cigarettes [email or web address] Information not available 06/09/2023 Mental Status Question Answer Note LastModified by Organization D etails LastModified Time Do you have difficulty concentrating, remembering or making decisions? No [email or web address] Information no t available 06/09/2023 Family History Relationship Description Onset Age of this Age Resolved Age Notes LastModified by Organization Details LastModified Time Maternal Grandmother Family history of Hypertension [email or web address] Not available 06/09/2023 13:27:23 Maternal Grandmother Family history of malignant neoplasm [email or web address] Not available 13:27:51 Sister Family history of seizure disorder Not available 13:27:33 Mother Family history of malignant neoplasm [email or web address] Not available 13:27:42 Mother Family history of Hypertension Not available 06/09/2023 13:27:26 Medical History Condition Response High Cholesterol Y Hospitalizations N Acid Reflux (GERD) Y Emergency room visit since last appointm ent. N Gynecological History Statement/Question Response Date of Last Pap Smear Most Recent Mammogram 03/08/2024 Obstetrics History GPAL:G 0 P 0 0 0 0 Immunizations Vaccine Type Date Status Note Provider Nam e and Address Organization Details Recorded Time Influenza, split virus, trivalent, preservative 3 completed EMERALD MYNEAR null, [facility] 09/28/2022 15:45:46 Tdap 2 completed EMERALD MYNEAR null, [facility] 09/28/2022 15:45:46 Novel Neboldimo-[id number], all formulations 9 completed EMERALD MYNEAR null, [place] [employer] [facility] [employer] 09/28/2022 15:45:46 Past Encounters Encounter ID Performer Location Encounter Start Date Encounter Closed Date Diagnosis/Indication Diagnosis SNOMED-CT Code Diagnosis ICD10 Code Diagnosis Note [id number] Lillie Ivory [address] [address] 09/28/2022 15:43:54 09/28/2022 16:11:19 Gastro-esophageal reflux disease with esophagitis 450659879 K21.00 Vitamin D deficiency 347 54798 E55.9 Chronic ob structive pulmonary disease 21846070 J44.9 Neoplasm o f uncertain behavior of skin 25495263 D48.5 Left ear [id number] Lillie Ivory [place] [phone] 12/20/2022 13:37:40 12/20/2022 14:09:36 Acute upper respiratory infection 73141809 J06.9 Acute sinusitis 05311299 J01.90 Patient likely has an acute bacterial sinusitis. Will treat as below. No signs of preseptal or orbital cellulitis , meningismu s, or neurologic changes concerning for intracrani al process. Instructed family to monitor patient closely and call office for any of these symptoms. Supportive care reviewed: raising HOB, humidifier use, saline nasal spray, rest, encourage PO fluids and monitor hydration status, infection control measures. Recommende d acetaminop hen/ibupro fen PRN pain, fever; reviewed appropriat e doses. Follow-up as below. Tobacco de pendence caused by cigarettes 8681776177 0762401 F17.210 Body mass index less than 20 678408569 Z68.1 [id number] [place] [id number] 06/09/2023 13:18:44 06/09/2023 14:00:49 Vitamin D deficiency 43110566 E55.9 Seasonal allergy 3470395 04 J30.2 Acute sinusitis 50074869 J01.90 [id number] Lillie Dianelys [place] [phone] 09/05/2023 14:57:34 09/05/2023 15:38:45 Nasal obstruction 875939479 J34.89 L>R, Continue flonase and daily antihistam ine. May need allergy testing if nares are indeed patent on ENT further exam. Allergic rhinitis 364850 04 J30.9 Gastro-eso phageal reflux disease with esophagitis 407215612 K21.00 Continue PPI. Stop smoking,. stop drinking caffeine and carbonated srinks. Thyroid nodule 520367436 E04.1 Tobacco de pendence caused by cigarettes 9319858830 3829115 F17.007 [id number] [place] [address] 01/14/2024 11:00:35 01/14/2024 12:05:15 Allergic rhinitis 83523337 J30.9 Patient presented with symptoms of upper respirator y infection. Advised to drink plenty of fluids, run a cool-mist humidifier in room at night, gargle salt water for sore throat, and get plenty of rest. Patient should avoid over-exert ion and reduce exposure to irritants such as smoke, cold, dry air, and dust.Patie nt may take acetaminop hen or ibuprofen as directed to reduce fever and body aches. Antihistam ine and decongesta nt usage was discussed and recommenda tions made.Scout nt understood these instructio ns and will follow up in the office in 10 days to 2 weeks if symptoms not improving. Nasal congestion 2071312 0 R09.81 Acute sinusitis 26330654 J01.90 [id number] [place] [address] 01/30/2024 13:33:08 01/30/2024 14:27:26 Seasonal allergy 337256575 J30.2 Screening mammography of bilateral breasts 3015253976 72515 Z12.31 Acute laryngitis 4208106 J04.0 Restart allergy medication s. Vocal rest, warm teas with honey, cepacol lozenges. Stop Smoking. [id number] [place] [address] 03/09/2024 12:20:24 03/09/2024 13:08:54 Mixed hyperlipidemia 772694240 E78.2 Low fat diet and exercise encouraged . Gastroesop hageal reflux disease without esophagitis 331891078 K21.9 Continue PPI PRN use only. Vitamin D deficiency 347 44633 E55.9 Tobacco de pendence caused by cigarettes 6089003767 4709150 F17.210 Smoking cessation education provided Body mass index 20-24 - normal 457849009 Z68.20 [id number] Lillie Ivory[address] [address] 01/02/2025 13:39:11 01/02/2025 14:36:19 Adult health examination 887563307 Z00.00 Counseled regarding contracept geoff options, and need for contracept ion until no menses for 1 year. BSE reviewed and recommende d . Reviewed calcium needs, exercise, and prevention of osteoporos is . Reviewed normal perimenopa usal transition . Mammogram recommende d yearly . Colonoscop y recommende d at age 52. Underweight 781055709 R6 3.6 Vitamin D deficiency 347 86932 E55.9 Screening mammography of bilateral breasts 2205692806 94185 Z12.31 Cervical d isc disorder with radiculopathy 086965577 M50.10 Radiating to left arm. She underwent ACDF with Dr Rowe in 2021. Will refer back to him. Nummular eczema 93355044 L30.0 Right thumb, will change her to nitrile only gloves at her work. May use Cortaid OTC. Tobacco de pendence caused by cigarettes 3622314704 1256994 F17.210 Smoking cessation education provided Fatigue 32919206 R53.83 [id number] Lillie Ivory[address] [address] 02/13/2025 13:09:26 02/13/2025 13:55:26 Acute upper respiratory infection 67773096 J06.9 Patient presented with symptoms of upper respirator y infection. Advised to drink plenty of fluids, run a cool-mist humidifier in room at night, gargle salt water for sore throat, and get plenty of rest. Patient should avoid over-exert ion and reduce exposure to irritants such as smoke, cold, dry air, and dust. Treatment currently involves symptomati c relief. Patient may take acetaminop hen or ibuprofen as directed to reduce fever and body aches. Antihistam ine and decongesta nt usage was discussed and recommenda tions made. Patient understood these instructio ns and will follow up in the office in 10 days to 2 weeks if symptoms not improving. rtw TOMORROW. Allergic rhinitis 261528 04 J30.9 Health Concerns Section Related Observation LastModified by Organization Detai ls LastModified Time None Recorded Concern Status LastModified by Organization Details LastModified Time None Recorded Advance Directives Directive N: Payers Insurance Date Sequence Insurance Name Policy Number Policy Wolff Covered Member ID Wolff Member ID Guarantor Name 02/12/2025 [place] [employer] [place] (MEDICAID) Daisy Manolo [id number] Daisy Manolo 05/22/[address] [facility] (MEDICAID [facility] Daisy Manolo [id number] Daisy Manolo 05/22/2025 1 [facility] ([facility]) Daisy Manolo [id number] Daisy Manolo 09/27/2022 1 *SELF PAY* Aline rachana Manolo Notes Date Note Type Note Provider Name and Address Organization Details Recorded Time 4 text/html Upper Respiratory SymptomsReported bypatient.Location:head; chest; nasal; ears; face Quality:congested;dry cough;nasal discharge Severity:mild; moderate Duration:symptoms lasting less than 2 weeks Onset/Timing:sudden Context:no foreign travel;sick contact;smoker;allergies Associated Symptoms:no chest pain; no sputum production; no shortness of breath; no wheezing; no cyanosis;fatigue Yamilka Mcnair APRN [address] [place], [address], [employer]. 01/14/2024 11:54:31 4 text/html Upper Respiratory SymptomsReported bypatient.Location:throat Quality:dry cough;hurts to swallow Severity:moderate Duration:symptoms lasting over 2 weeks Onset/Timing:gradual Context:no sick contacts; no foreign travel;allergies Alleviating Factors:analgesics; antihistamines Associated Symptoms:morning cough;sore throat; laryngitis, hoarseness Lillie Ivory APRN [address] [place], [address], [employer] 02/19/2024 18:22:53 4 text/html HyperlipidemiaReported bypatient.Duration:chronic Control:not at goal Adherence to Treatment Plan:exercises;does not follow recommended diet Complications:no coronary artery disease; no peripheral artery disease; no cardiovascular disease Risk Factors:smoking;high lipoprotein(a) level;consumption of saturated fats and trans-fatty acidsReflux/GERDReported bypatient.Quality:burning;p ressure Severity:improving Duration:present 1-4 years Onset/Timing:gradual onset; daily; occurs at night/while sleeping; occurs immediately after meals Context:smoker 1PPD Alleviating Factors:proton pump inhibitors Aggravating Factors:lying down;worsened by food; acidic foods Risk Factorstobacco useNotes:Tried to stop PPI and GERD sx return, She is now using PPI 2-3 days per week PRN. Needs f/up on Vitamin D deficiency. Lillie Ivory, [employer] [address] [place] [address], [phone], [facility] [employer]. 03/11/2024 14:59:06 5 text/html Annual WellnessReported bypatient.Diet and Nutrition:diet is high in salt;high carbohydrate meals; discussed vitamin and supplement use; discussed maintaining calcium balance; discussed diet improvement Fracture Risk:no history of fractures; no recent explained fracture Physical Activity:exercises on a regular basis Additional Lifestyle Factors:tobacco use Depression Risk:never feels sad, empty, or tearful; no loss of interest in activities; no significant changes in weight; no sleep disturbances or insomnia; no agitation; no feelings of worthlessness or guilt; no thoughts of suicide; no history of depression; no history of mood disorders;loss of energy Hearing:no loss of hearing Vision:no vision problemsFatigueReported bypatient.Quality:generaliz ed Severity:mild Duration:acute; <1 month Timing:gradual Context:no new stressors in life Associated Symptoms:no depression; no alcohol consumption; no anxiety; no sleep disturbances; normal sleep; no snoring; no sleep apnea; no weight loss; no weight gain; no chest pain; no joint pain; no rash; no palpitations; no shortness of breath; no dizziness; no sore throat; no joint pain; no headache; no exertional fatigue; no tender, swollen glands; no fever; no memory impairmentNotes:c/o fatigue for 3 weeksNeck PainReported bypatient.Location:bilatera l; posterior; radiates to left elbow Quality:burning Severity:worsening; moderate Duration:intermittent episodes lasting: Timing:chronic; recurrent; underwent ACDF in 2021. States sx began again 6 months ago Context:atraumatic; radiculopathy Alleviating Factors:position change; ice; rest; NSAIDs Aggravating Factors:pushing/pulling; motion; exercise Neurological Complaints:numbness of the arms;tingling of the arms;pain in the arms Other Associated Symptoms:no swelling; no redness; no warmth; no ecchymosis; no grinding; no fever; no chills; no weight loss Treatment:PT/OT; previous surgery Previous Surgery:surgical procedure: Prior Imaging:x-ray; MRI Needs f/up on Vitamin D deficiency. Lillie Ivory APRN [address] [place] [address], [phone], [employer] 01/06/2025 19:44:42 5 text/html Upper Respiratory SymptomsReported bypatient.Location:chest; nasal; ears; face Quality:congested;dry cough;nasal discharge Severity:moderate Duration:symptoms lasting less than 2 weeks Onset/Timing:sudden; date of onset: (02/07/25) Context:no foreign travel;sick contact;smoker;allergies Alleviating Factors:analgesics; decongestant Associated Symptoms:no chest pain; no sputum production; no shortness of breath; no wheezing; no cyanosis;fatigue;morning cough; ear fullness iLllie Ivory APRN [address] [place], [address], [employer] 02/13/2025 13:59:24 OBGyn Episode No OBEpisode recorded.
--- OUTSIDE RECORDS SUMMARY | 2025-06-03 14:06 | XMS_ITS | Encounter Summary ---
Author Organization [employer] ([place], [place], [place], [place]) Address [address] [place] [address] Care Team Providers Care Hand Coke Drawer Name Role Phone Unavailable Primary Care Provider Unavailabl e Encounter Details Date Type Department Care Team (Late st Contact Info) Description 11/30/2021 Transcribed Document [facility] Family Medicine [address] [place] [address] ProviderWinsome MD [address] [place] [address] Social History Tobacco Use Types [...] Cerner Conversion Note - Historical ProviderMD - 11/30/2021 12:26 PM [employer] [facility] Authorization Entered On: 11/30/2021 12:27 EST Performed On: 11/30/2021 12:26 EST by ANA MEADE, Analytical Research Chemist Primary Insurance Authorization Authorization and Policy Numbers : Insurance 1 [facility] Policy Number: [id number] Authorization Number: Insurance Primary Name : [facility] [id number] Authorization Status-Primary : No precert required Authorized Service Begin Date-Primary : 12/01/2021 EST Observation Authorization Nbr-Primary : NPR per [facility] notes Authorization Comments-Primary : Pt is miguelina for OP cervical discectomy fusion anterior on 12-01-[address] [facility] NPR Historical Authorization Comments-Primary : No Authorization Comments Found ANA MEADE, Analytical Research Chemist - 11/30/2021 12:26 EST Electronically signed by [facility], [facility] Conversion Test Eng Cerner at 03/09/2023 2:00 PM CDT documented in this encounter Plan of Treatment Not on file documented as of this encounter Visit Diagnoses Not on filedocumented in this encounter
--- OUTSIDE RECORDS SUMMARY | 2025-06-03 14:06 | XMS_ITS | Encounter Summary ---
Author Organization [facility] ([place], [place], [place], [place]) Address [address] [place] [address] Care Team Providers Care Mixer Crane Operator Name Role Phone Unavailable Primary Care Provider Unavailabl e Encounter Details Date Type Department Care Team (Late st Contact Info) Description 12/01/2021 Transcribed Document [facility] Family Medicine [address] [place] [address] ProviderWinsome MD [address] [place] [address] Social History Tobacco Use Types [...] - Winsome ProviderMD - 12/01/2021 10:05 AM TECHNICAL SUPPORT ENGINEER [facility] Main OR PACU Summary Primary Physician: EKTA FARMER MD-ORT Finalized Date/Time: 12/01/21 11:57:56 Pt. Name: DAISY MORRIS/Sex: 1980 Female Med Rec #: [id number] Physician: EKTA FARMER MD-ORT Financial #: [id number] Pt. Type: O Room/Bed: Admit/Disch: 12/01/21 06:59:00 - Institution: [facility] Main OR PACU I Case Times Entry 1 In PACU I 12/01/21 10:49:00 Ready for PACU 12/01/21 11:40:00 Discharge Discharge from PACU 12/01/21 11:40:00 I Last Modified By: Shola Erickson RN 12/01/21 11:57:47 Finalized By: Shola Erickson RN Document Signatures Signed By: Shola Erickson RN 12/01/21 11:57 Electronically signed by [facility] Conversion Registered Occupational Therapist Cerner at 03/09/2023 1:45 PM CDT documented in this encounter Plan of Treatment Not on file documented as of this encounter Visit Diagnoses Not on filedocumented in this encounter
--- OUTSIDE RECORDS SUMMARY | 2025-06-03 14:06 | XMS_ITS | Encounter Summary ---
Author Organization [employer] ([place], [place], [place] Address [address] [place] [address] Care Team Providers Care Personal Financial Representative Name Role Phone Unavailable Primary Care Provider Unavailabl e Encounter Details Date Type Department Care Team (Late st Contact Info) Description 12/01/2021 Transcribed Document [facility] Family Medicine [address] [place] [address] ProviderWinsome MD [address] [place] [address] Social History Tobacco Use Types [...] - Winsome ProviderMD - 12/01/2021 10:05 AM SAP FICO ARCHITECT [facility] Main OR IntraOp Summary Primary Physician: EKTA FARMER MD-ORT Finalized Date/Time: 12/01/22 14:33:42 Pt. Name: DAISY MORRIS/Sex: 1980 Female Med Rec #: [id number] Physician: EKTA FARMER MD-ORT Financial #: [id number] Pt. Type: O Room/Bed: Admit/Disch: 12/01/21 06:59:00 - 12/01/21 12:45:00 Institution: [facility] IntraOp Case Attendance Entry 1 Entry 2 Entry 3 Case Attendee FARMER, AKUA MERRILL MELISSA A, RN CECILIA WATSON, [employer] APPLICATION DEVELOPER Role Performed Surgeon/Proceduralist, Integrated Circuit Design Engineer, First Scrub, First First Time In 12/01/21 09:22:00 12/01/21 09:22:00 12/01/21 09:22:00 Time Out 12/01/21 10:47:00 12/01/21 09:40:00 12/01/21 10:47:00 Procedure Cervical Discectomy Cervical Discectomy Cervical Discectomy Fusion Anterior Fusion Anterior Fusion Anterior Other Attendee Superficial Wound Closed By: Last Modified By: Carissa Gao, Carissa Gao, Carissa Gao, Surgery RN Lead Surgery RN Lead Surgery RN Lead 12/01/21 10:47:29 12/01/21 10:47:29 12/01/21 10:47:29 Entry 4 Entry 5 Entry 6 Case Attendee OTHER, ATTENDEE MARIE LO MD-ANS Moore, Kimberly A, Surgery RN Lead Role Performed Vendor Anesthesiologist Integrated Circuit Design Engineer, First Time In 12/01/21 09:22:00 12/01/21 09:22:00 12/01/21 09:40:00 Time Out 12/01/21 10:47:00 12/01/21 10:47:00 12/01/21 10:47:00 Procedure Cervical Discectomy Cervical Discectomy Cervical Discectomy Fusion Anterior Fusion Anterior Fusion Anterior Other Attendee uriel wild Superficial Wound Closed By: Last Modified By: Carissa Gao, Carissa Gao, Carissa Gao, Surgery RN Lead Surgery RN Lead Surgery RN Lead 12/01/21 10:47:29 12/01/21 10:47:29 12/01/21 10:47:29 Entry 7 Case Attendee Josiah Villagran ST Role Performed Manufacturing Accountant, First Time In 12/01/21 09:22:00 Time Out 12/01/21 10:47:00 Procedure Cervical Discectomy Fusion Anterior Other Attendee Superficial Wound Closed By: Last Modified By: Carissa Gao, Surgery RN Lead 12/01/21 10:47:29 [facility] IntraOp Case Attendance Audit 12/01/21 10:47:29 Multiple Cut Off Saw Operator: [id number] Modifier: [id number] <+> Time Out 1 <*> Procedure Cervical Discectomy Fusion Anterior 2 <*> Procedure Cervical Discectomy Fusion Anterior 3 <+> Time Out 3 <*> Procedure Cervical Discectomy Fusion Anterior 4 <+> Time Out 4 <*> Procedure Cervical Discectomy Fusion Anterior 5 <+> Time Out 5 <*> Procedure Cervical Discectomy Fusion Anterior 6 <+> Time Out 6 <*> Procedure Cervical Discectomy Fusion Anterior 7 <+> Time Out 7 <*> Procedure Cervical Discectomy Fusion Anterior 12/01/21 09:58:28 Multiple Cut Off Saw Operator: GLORIA Modifier: [id number] <+> Time In 1 <*> Procedure Cervical Discectomy Fusion Anterior 2 <+> Time In 2 <+> Time Out 2 <*> Procedure Cervical Discectomy Fusion Anterior 3 <+> Time In 3 <*> Procedure Cervical Discectomy Fusion Anterior 4 <+> Time In 4 <*> Procedure Cervical Discectomy Fusion Anterior 5 <+> Time In 5 <*> Procedure Cervical Discectomy Fusion Anterior 6 <+> Time In 6 <*> Procedure Cervical Discectomy Fusion Anterior 7 <+> Time In 7 <*> Procedure Cervical Discectomy Fusion Anterior 12/01/21 08:42:45 Multiple Cut Off Saw Operator: [email or web address] Modifier: GLORIA <+> 1 Procedure 2 <*> Procedure Cervical Discectomy Fusion Anterior 3 <*> Procedure Cervical Discectomy Fusion Anterior 4 <*> Procedure Cervical Discectomy Fusion Anterior 5 <*> Procedure Cervical Discectomy Fusion Anterior 6 <*> Procedure Cervical Discectomy Fusion Anterior 7 <*> Procedure Cervical Discectomy Fusion Anterior 12/01/21 08:41:06 Multiple Cut Off Saw Operator: GLORIA Modifier: GLORIA <+> 7 Case Attendee <+> 7 Role Performed <+> 7 Procedure 12/01/21 08:38:37 Multiple Cut Off Saw Operator: TYESHAME Modifier: TAYLORME <+> 6 Case Attendee <+> 6 Role Performed <+> 6 Procedure 12/01/21 08:35:48 Multiple Cut Off Saw Operator: TYESHAME Modifier: TYESHAME <+> 5 Case Attendee <+> 5 Role Performed <+> 5 Procedure [facility] IntraOp Case Times Entry 1 Patient In Room Time 12/01/21 09:22:00 Out Room Time 12/01/21 10:47:00 Anesthesia Start Time 12/01/21 09:22:00 Stop Time 12/01/21 10:47:00 Surgery / Procedure Times Start Time 12/01/21 10:05:00 Stop Time 12/01/21 10:42:00 Last Modified By: Carissa Gao Surgery RN Lead 12/01/21 10:47:26 [facility] IntraOp Case Times Audit 12/01/21 10:47:26 Multiple Cut Off Saw Operator: [id number] Modifier: [id number] <+> 1 Start Time 12/01/21 10:47:05 Multiple Cut Off Saw Operator: [id number] Modifier: [id number] <+> 1 Out Room Time <+> 1 Stop Time 12/01/21 10:44:13 Multiple Cut Off Saw Operator: [id number] Modifier: [id number] <+> 1 Stop Time [facility] IntraOp Cautery Entry 1 Entry 2 ESU Identification Cautery Type Monopolar ESU BiPolar ESU Cautery Type Comments ID Number [id number] ID Type Hospital Number Hospital Number Cautery Settings Cut Setting 35 35 Coag Setting 35 35 Blend Setting Bipolar Setting Argon Setting [place] [facility] Grounding Pad Ground Pad Type Adult Grounding Pad Type Comment Grounding Pad Site Right thigh Grounding Pad Site Comment Grounding Pad MARGUERITE ARAMBULA RN Applied By Grounding Pad Site Warm, Dry, Intact Skin Condition Before Cautery Site Skin Condition Before Comment Grounding Pad Site Carl Skin Condition After Cautery Site Skin Condition After Comment Last Modified By: MARGUERITE ARAMBULA RN TAYLOR, MELISSA A, RN 12/01/21 08:38:11 12/01/21 08:38:11 [facility] IntraOp Communication Entry 1 Communication To Family/Significant other Comment CALL REJECTED Communication By Carissa Gao Surgery RN Lead Date and Time 12/01/21 10:11:00 Last Modified By: Carissa Gao Surgery RN Lead 12/01/21 10:11:52 [facility] IntraOp Counts Verification Entry 1 Procedure Cervical Discectomy Fusion Anterior Count Info Count Type Sponge, Sharps, Miscellaneous Counts Verification Baseline/pre-procedure Sequence Count Results Not Applicable Counts Performed By Count Performed By CECILIA WATSON SCRUB (Scrub) TECH Count Performed By MARGUERITE ARAMBULA RN (RN) Last Modified By: MARGUERITE ARAMBULA RN 12/01/21 08:34:59 [facility] IntraOp Counts Final Entry 1 Procedure Cervical Discectomy Fusion Anterior Final Count Info Count Type Sponge, Sharps, Miscellaneous Counts Verification Skin Closure/end of Sequence procedure Count Results Correct, surgeon notified Counts Performed By Count Performed By CECILIA WATSON SCRUB (Scrub) TECH Count Performed By Carissa Gao, (RN) Surgery RN Lead Last Modified By: Carissa Gao, Surgery RN Lead 12/01/21 10:30:53 [facility] IntraOp Counts Final Audit 12/01/21 10:30:53 Multiple Cut Off Saw Operator: [id number] Modifier: [id number] 1 <*> Procedure Cervical Discectomy Fusion Anterior 1 <+> Count Performed By (Scrub) [facility] IntraOp Departure from OR Entry 1 Integumentary Assessment Integumentary WDL with patient Assessment WDL specific variances Patient's Normal SURGICAL INCISION-NECK Integumentary Variance(s) Transfer/Handoff Transfer to PACU Phase I Handoff Method Bedside/Face to face, Phone call, Online nursing summary Post-op Transport Stretcher/rney Via Patient Transport MARIE LO MD-ANS Accompanied by Last Modified By: MARGUERITE ARAMBULA RN 12/01/21 08:39:09 [facility] IntraOp Dressing and Packing Entry 1 Type Dressing Location OPERATIVE SITE: NECK Wound Dressing Item Skin Closure Glue, 4x4's Supplemental Cervical Collar Applications Applied By Josiah Villagran ST Other Comments SOFT C-COLLAR Last Modified By: Carissa Gao, Surgery RN Lead 12/01/21 09:59:15 [facility] IntraOp Dressing and Packing Audit 12/01/21 09:59:15 Multiple Cut Off Saw Operator: GLORIA Modifier: [id number] <+> 1 Other Comments [facility] IntraOp Fire Risk Assessment Entry 1 Fire Info Surgical Site or 1- Yes Incision Above the Xyphoid Open O2 Source 0- No (Mask or Cannula) Available Ignition 1- Yes (ESU, Laser, Light Source) Fire Risk 2 Assessment Score Fire Score Fire Risk Yes Assessment Complete Fire Risk Carissa Gao, Assessment Verified Surgery RN Lead By Fire Risk 12/01/21 09:59:00 Assessment Verified Date/Time Fire Risk Standard Fire Yes Safety Precautions Followed Last Modified By: Carissa Gao, Surgery RN Lead 12/01/21 09:59:23 [facility] IntraOp Fire Risk Assessment Audit 12/01/21 09:59:23 Multiple Cut Off Saw Operator: GLORIA Modifier: [id number] 1 <*> Fire Risk Assessment Verified By MARGUERITE ARAMBULA RN 1 <+> Fire Risk Assessment Verified Date/Time [facility] IntraOp General Case Mechanical Engineering Technician 1 Case Information OR OR 16 [facility] Case Level 1 Room Verified Yes Wound Class 1 - Clean Specialty Orthopedic Anesthesia Type General ASA Class 2 Diagnosis Preop Diagnosis cervical pain Postop Same As Preop No Postop Diagnosis see md post op notes Wound Class Definitions Last Modified By: Carissa Gao, Surgery RN Lead 12/01/21 10:09:56 [facility] IntraOp General Case Data Audit 12/01/21 10:09:56 Multiple Cut Off Saw Operator: GLORIA Modifier: [id number] <+> 1 ASA Class [facility] IntraOp Implant Log Entry 1 Entry 2 Entry 3 Type Tissue Implant Implant (Synthetic) Implant (Synthetic) (Biologic) Implant Log Implant Type Hardware Hardware Tissue Implant Type Other Implant GRFT BONE PRESERVON .PIN COMPR PEAK PA PLT ANT SKYLN HYBRD Identification [id number] Description Implant Quantity 1 2 1 Implant Site OPERATIVE SITE OPERATIVE SITE OPERATIVE SITE Implant Identification Model Number Implant Identification Serial Number Implant [id number] Identification Lot Number Implant Lifenet:Lifenet J&J:Depuy:Depuy Spine Identification Transplant Srv Greens Planter Name: Implant [id number] 1868-01-012 Identification Catalog Number Implant Size Implant Has an Yes No No Expiration Date Implant Expiration 04/05/26 Date Wasted Radioactive Material Time Implanted Tissue Implant Continue for Tissue Implant Documentation Tissue Identification Number Graft Prep Per Yes Greens Planter Instructions: Tissue Preparation N/A Method: Reconstitution Solution: Reconstitution Solution Lot Number Reconstitution Solution Expiration Date: Thawing Solution Thawing Solution Lot Number Thawing Solution Expiration Date Preparation Materials, Other Preparation Materials, Other Lot Number Preparation Materials, Other Expiration Date Tissue EKTA FARMER MD-ORT Prepared/Processed By Greens Planter Yes Paperwork Completed Implant Type Comment ALLOGRAFT Last Modified By: Carissa Gao, Carissa Gao, Carissa Gao, Surgery RN Lead Surgery RN Lead Surgery RN Lead 12/01/21 10:35:54 12/01/21 10:35:54 12/01/21 10:35:54 Entry 4 Type Implant (Synthetic) Implant Log Implant Type Hardware Tissue Implant Type Implant SCR SKYLN VARI SD Identification [id number] Description Implant Quantity 4 Implant Site OPERATIVE SITE Implant Identification Model Number Implant Identification Serial Number Implant Identification Lot Number Implant J&J:Depuy:Depuy Spine Identification Greens Planter Name: Implant [id number] Identification Catalog Number Implant Size Implant Has an No Expiration Date Implant Expiration Date Wasted Radioactive Material Time Implanted Tissue Implant Continue for Tissue Implant Documentation Tissue Identification Number Graft Prep Per Greens Planter Instructions: Tissue Preparation Method: Reconstitution Solution: Reconstitution Solution Lot Number Reconstitution Solution Expiration Date: Thawing Solution Thawing Solution Lot Number Thawing Solution Expiration Date Preparation Materials, Other Preparation Materials, Other Lot Number Preparation Materials, Other Expiration Date Tissue Prepared/Processed By Greens Planter Paperwork Completed Implant Type Comment Last Modified By: Carissa Gao Surgery RN Lead 12/01/21 10:35:54 [facility] IntraOp Implant Log Audit 12/01/21 10:35:54 Multiple Cut Off Saw Operator: [id number] Modifier: [id number] 1 <*> Implant Identification Description [facility] BONE PRESERVON [id number] 1 <+> Implant Quantity <+> 2 Implant Identification Description <+> 2 Implant Site <+> 2 Implant Quantity <+> 2 Implant Type <+> 2 Implant Has an Expiration Date <+> 2 Type <+> 3 Implant Identification Description <+> 3 Implant Identification Greens Planter Name: <+> 3 Implant Site <+> 3 Implant Quantity <+> 3 Implant Identification Catalog Number <+> 3 Implant Type <+> 3 Implant Has an Expiration Date <+> 3 Type <+> 4 Implant Identification Description <+> 4 Implant Identification Greens Planter Name: <+> 4 Implant Site <+> 4 Implant Quantity <+> 4 Implant Identification Catalog Number <+> 4 Implant Type <+> 4 Implant Has an Expiration Date <+> 4 Type [facility] IntraOp Intraoperative Assessment Entry 1 Handoff Method Online nursing summary Valid History / Yes Physical in Chart Preoperative Yes Checklist Reviewed/Evaluated Allergies Reviewed Yes Patient is Latex No Sensitive Isolation Unable to assess Precautions Noted Level of WDL Consciousness (WDL = Alert, Oriented to Person, Place, and Time) Skin Assessment Yes Verified Present Upon IVs Arrival to OR Last Modified By: MARGUERITE ARAMBULA RN 12/01/21 08:40:12 [facility] IntraOp Intraoperative Equipment Entry 1 Entry 2 Type Equipment Equipment Equipment Equipment Joe Suction System Smoke evacuator ID Number [id number] Setting ON Intraop Monitoring Electrocardiogram (ECG) Electrode Placement Blood Pressure Source Blood Pressure Location Pulse Oximeter Probe Site Antiembolic Devices Antiembolic Devices Sequential compression device, knee high Antiembolic Device Bilateral Location Antiembolic Device 30102 ID Number Antiembolic Device SCDS ON AND WORKING Setting PRIOR TO INDUCTION Scopes Flexible Endoscopes Used Scope Serial Number/Identificatio n Number Photo/Video Documentation Photo No Video No Intraop Equipment Comment Last Modified By: MARGUERITE ARAMBULA RN TAYLOR, MELISSA A, RN 12/01/21 08:42:08 12/01/21 08:42:08 [facility] IntraOp Medication Admin Entry 1 Medication/Irrigant thrombin 5000units topical powder - [id number] Combo Med List 2 - Combo Med Route of TOPICAL Administration Dose Administered By EKTA FARMER MD-ORT Procedure Irrigation Last Modified By: MARGUERITE ARAMBULA RN 12/01/21 08:42:55 [facility] IntraOp Patient Positioning Entry 1 Procedure Cervical Discectomy Fusion Anterior Body Position Supine Left Arm Position Resting at side Right Arm Position Resting at side Left Leg Position Uncrossed, parallel Right Leg Position Uncrossed, parallel Feet Uncrossed Yes Pressure Points Yes Checked Positioning Devices Arm Board, Head Rest, [place] Horseshoe Head Rest, Pad, Arm, Pad, Elbow, Safety Strap, Arm(s), Safety Strap, Thighs Positioned By EKTA FARMER MD-ORT, MARGUERITE ARAMBULA RN, CECILIA WATSON, MICROSOFT APPLICATION DEVELOPER, MARIE LO MD-ANS, Tyshawn, Josiah, ST Position Verified Positioning Yes Verified by Anesthesia Positioning Yes Verified by Surgeon Last Modified By: MARGUERITE ARAMBULA RN 12/01/21 08:41:25 [facility] IntraOp Patient Positioning Audit 12/01/21 08:41:25 Multiple Cut Off Saw Operator: GLORIA Modifier: [email or web address] 1 <*> Procedure Cervical Discectomy Fusion Anterior 1 <*> Positioned By EKTA FARMER MD-ORT [facility] IntraOp Sign In Entry 1 Patient, Site, Yes Procedure Identified Surgical Consent Yes Confirmed Relevant Surgical Yes Documents Available Surgical Site Yes Marked by person performing procedure Anesthesia Machine Yes Check Completed Medication Checks Yes Completed Allergies Yes Airway Difficult Yes Airway/Aspiration Risk Difficult Yes Airway/Aspiration Intervention Equipment Available Blood Loss Risk Yes Blood Loss Yes Intervention Equipment Prepared and Ready Blood Identifiers Not applicable Verified Per Policy Hypothermia Risk Yes Warming Measures Yes Taken Last Modified By: MARGUERITE ARAMBULA RN 12/01/21 08:38:49 [facility] IntraOp Sign Out Entry 1 RN Confirmation Surgical Yes Procedure(s) Identified Instrument, Sponge Yes and Sharps Counts Correct/Documented Equipment Problems N/A Documented Specimen Labeled N/A Correctly Urinary Catheter N/A Documented in IView Wound Yes classification reviewed, verified and updated post case in both the General Case Data and Procedure segments [place] Patient Yes Recovery Concerns Reviewed with Anesthesia Provider, Surgeon and RN Boyle Patient Yes Management Concerns Reviewed with Anesthesia Provider, Surgeon and RN Safety Checklist Yes Elements Complete? RN Sign Out Carissa Gao Signature Surgery RN Lead RN Sign Out 12/01/21 10:32:00 Signature Date/Time Plan of Care Outcome - Fire Risk OUTCOME STATEMENT: Goal met Patient is free from injury related to surgical fire Plan of Care Outcome - Pt Positioning OUTCOME STATEMENT: Goal met Absence of signs and symptoms of positioning injury. Plan of Care Outcome - Skin Prep OUTCOME STATEMENT: Goal met Intraoperative care is consistent with measures to prevent infection Plan of Care Outcome - Xray/Images OUTCOME STATEMENT: Goal met Absence of observable signs or symptoms of radiation injury Plan of Care Outcome - Counts OUTCOME STATEMENT: Goal met Absence of signs and symptoms of injury related to extraneous objects Last Modified By: Carissa Gao Surgery RN Lead 12/01/21 10:32:20 [facility] IntraOp Sign Out Audit 12/01/21 10:32:20 Multiple Cut Off Saw Operator: GLORIA Modifier: [id number] <+> 1 RN Sign Out Signature Date/Time [facility] IntraOp Skin Prep Entry 1 Procedure Cervical Discectomy Fusion Anterior Prescribed N/A Pre-Surgical Prep Completed Prep Area CHIN, NECK, CHEST, SHOULDERS Intraop Prep Integumentary WDL Assessment WDL Prep Agents Chloraprep Prep by Carissa Gao Surgery RN Lead Hair Removal Methods No hair removal performed Last Modified By: Carissa Gao Surgery RN Lead 12/01/21 10:12:25 [facility] IntraOp Skin Prep Audit 12/01/21 10:12:25 Multiple Cut Off Saw Operator: GLORIA Modifier: [id number] <*> Procedure Cervical Discectomy Fusion Anterior 1 <*> Prep by MARGUERITE ARAMBULA RN [facility] IntraOp Surgical Procedures Entry 1 Procedure Cervical Discectomy Fusion Anterior Additional C5-6 ACDF Procedure Description Primary Procedure Yes Primary Surgeon ETKA FARMER MD-ORT Start 12/01/21 10:05:00 Stop 12/01/21 10:42:00 Anesthesia Type General Specialty Orthopedic Wound Class 1 - Clean Last Modified By: Carissa Gao, Surgery RN Lead 12/01/21 10:47:27 [facility] IntraOp Surgical Procedures Audit 12/01/21 10:47:27 Multiple Cut Off Saw Operator: [id number] Modifier: [id number] <+> 1 Start 12/01/21 10:44:14 Multiple Cut Off Saw Operator: [id number] Modifier: [id number] <+> 1 Stop 12/01/21 10:12:34 Multiple Cut Off Saw Operator: GLORIA Modifier: [id number] 1 <*> Procedure Cervical Discectomy Fusion Anterior 1 <+> Wound Class 1 <*> Additional Procedure Description (C5-6 ACDF) [facility] IntraOp Temp Regulation Devices Entry 1 Temp Regulation Temperature Forced Air Warming Regulation Device device, Warm blankets Temperature Lower body Regulation Site Temperature MARIE LO MD-ANS Regulation Device Applied by Temperature THERMOREGULATION Regulation Comment MEASURES MONITORED AND ADJUSTED BY ANESTHESIA Last Modified By: MARGUERITE ARAMBULA RN 12/01/21 08:42:15 [facility] IntraOP Time Out Entry 1 Procedure to be Cervical Discectomy Performed Fusion Anterior Time Out Time Out Pause Time 12/01/21 10:05:00 All activity Yes suspended (unless life threatening emergency) Team Verbally Correct patient Confirms Information identity, Correct side and site are marked, Consent form is present and accurate, Agreement on the procedure to be done, Correct patient position, Relevant images/results properly labeled/appropriately displayed, Confirm antibiotics have been administered, Confirm the skin prep has dried, Confirm prosthesis/implant/devic e is present, Performed in location of procedure after prepped/draped, Performed before each procedure if multiple procedures, Reconcile problems if responses among team members differ Antibiotic Yes Prophylaxis Administered Or In Progress Within the Last 60 Minutes Beta Heather N/A Administered Venous Yes Thromboembolism Prophylaxis Required Anticipated Critical Events Surgeon None expected Anesthesia Provider None expected Nursing Assures Sterility of instruments, Implant Availability Essential Imaging Yes Labeled and Displayed Last Modified By: Carissa Gao, Surgery RN Lead 12/01/21 10:14:17 [facility] IntraOP Time Out Audit 12/01/21 10:14:17 Multiple Cut Off Saw Operator: GLORIA Modifier: [id number] <*> Nursing Assures Sterility of instruments, Equipment concerns or issues, Implant Availability 1 <+> Time Out Pause Time 1 <*> Procedure to be Performed Cervical Discectomy Fusion Anterior [facility] IntraOp X-Ray and Images Entry 1 X-Ray/Imaging Type Fluoroscopy Fluoroscopy Type C-Arm Site OPERATIVE SITE Supervisor Metal Furniture Fabrication Name MELISA BERGER Protective Devices No Used Last Modified By: Carissa Gao, Surgery RN Lead 12/01/21 10:14:32 Case Comments <None> Finalized By: ROSEMARIE BELLE Document Signatures Signed By: Craissa Gao, Surgery RN Lead 12/01/21 10:47 ROSEMARIE BELLE 12/02/21 13:21 ROSEMARIE BELLE 12/01/22 14:33 Unfinalized History Date/Time Username Reason for Unfinalizing Freetext Reason for Unfinalizing 12/02/21 13:19 WATTSDR Correct Billing 12/01/22 14:33 WATTSDR Correct Billing documented in this encounter Plan of Treatment Not on file documented as of this encounter Visit Diagnoses Not on filedocumented in this encounter
== END 2025-06-03 23:59 | disposition home or self-care (01) ==
LOC: RAD 13:58
PROVIDERS: PCP Nurse Practitioner Family; Visit Provider Nurse Practitioner Family
DX: Z12.31 Encounter for screening mammogram for malignant neoplasm of breast (principal); R92.333 Mammographic heterogeneous density, bilateral breasts
CPT/HCPCS: 77063; 77067